=== PATIENT | male | born 1980 | race Hispanic/Latino ===

== ENCOUNTER 2018-01-07 11:42 | Emergency (ER) | payer SELFPAY ==
[2018-01-07] MEDS ORDERED: NA CHLORIDE 0.9% 1,000 ML ONE (12:23)
[2018-01-07 12:39] LABS: Absolute Lymphocytes (CBC) 1.3 K/uL (0.7-4.9); Absolute Monocytes 0.7 K/uL (0.1-1.3); Absolute Neutrophil 5.9 K/uL (1.8-8.0); Eosinophils % 1.4 % (0-4.4); Hematocrit 46.9 % (39.6-49.0); Lymphocytes % 15.9 % (15.3-44.8); MCH 30.2 pg (27.0-35.0); MCV 89.6 fL (80-100); MPV 9.7 fL (7.6-11.3); Monocytes % 8.3 % (3.3-12.3); RBC Red Blood Cell Count 5.23 M/uL (4.33-5.43)
--- NOTE | 2018-01-07 12:40 | RAD REPORT ---
EXAM DESCRIPTION: CT - Head Brain Wo Cont - 01/07/2018 12:23 pm CLINICAL HISTORY: Dizziness COMPARISON: 2007 TECHNIQUE: Computed axial tomography of the head was obtained. IV contrast was not requested. All CT scans are performed using dose optimization technique as appropriate and may include automated exposure control or mA/KV adjustment according to patient size. FINDINGS: An intracranial bleed is not seen . The ventricles are normal in caliber. No extra-axial fluid collection is noted. Fluid within the sinuses/ mastoids is not seen. IMPRESSION: No acute intracranial abnormality is seen. If patient's symptoms persist MRI of the bra in would be recommended.
[2018-01-07 12:51] LABS: CKMB Creatine Kinase MB 1.5 ng/mL (0.3-3.6); Magnesium 2.2 mg/dL (1.8-2.4); Potassium 3.8 mmol/L (3.5-5.1)
[2018-01-07 13:49] LABS: Urine Blood NEGATIVE (NEG); Urine Glucose NEGATIVE (NEG); Urine Protein NEGATIVE (NEG); Urine pH 6.5 (5.0-7.0)
--- NOTE | 2018-01-07 15:28 | ER ---
Nurse's Notes [facility] Name: Suyapa Garcia Age: 37 yrs Sex: Male : 1980 Arrival Date: 01/07/2018 Time: 11:45 Bed 20 Private MD: None, None Diagnosis: Dizziness and giddiness;Near Syncope Presentation: 01/07 11:48 Presenting complaint: Patient states: "I got dizzy today and started sweating, I was aa5 just sitting in a car when it happened". Pt currently denies dizziness. Denies headache. 11:48 Transition of care: patient was not received from another setting of care. Onset of aa5 symptoms was January 07, 2018. Risk Assessment: Do you want to hurt yourself or someone else? Patient reports no desire to harm self or others. Initial Sepsis Screen: Does the patient meet any 2 criteria? No. Patient's initial sepsis screen is negative. Does the patient have a suspected source of infection? No. Patient's initial sepsis screen is negative. Care prior to arrival: None. 11:48 Method Of Arrival: Ambulatory aa5 11:48 Acuity: MAYRA 3 aa5 Historical: - Allergies: 11:53 No Known Allergies; aa5 - Home Meds: 11:53 None [Active]; aa5 - PMHx: 11:53 Hypertension; aa5 - PSHx: 11:53 None; aa5 - Immunization history:: Adult Immunizations up to date. - Social history:: Smoking status: Patient/guardian denies using tobacco. - Ebola Screening: : No symptoms or risks identified at this time. - Family history:: not pertinent. - Hospitalizations: : No recent hospitalization is reported. Screenin:10 Abuse screen: Denies threats or abuse. Denies injuries from another. Nutritional jl7 screening: No deficits noted. Tuberculosis screening: No symptoms or risk factors identified. Fall Risk IV access (20 points). Total Espinoza Fall Scale indicates No Risk (0-24 pts). Assessment: 12:10 General: Appears in no apparent distress. Behavior is calm, cooperative, appropriate jl7 for age. Pain: Denies pain. Neuro: Level of Consciousness is awake, alert, obeys commands, Oriented to person, place, time, situation. Cardiovascular: Heart tones S1 S2 present Patient's skin is warm and dry. Respiratory: Airway is patent Respiratory effort is even, unlabored, Respiratory pattern is regular, symmetrical, Breath sounds are clear bilaterally. GI: No signs and/or symptoms were reported involving the gastrointestinal system. : No signs and/or symptoms were reported regarding the genitourinary system. EENT: No signs and/or symptoms were reported regarding the EENT system. Derm: Skin is pink, warm \\T\\ dry. Musculoskeletal: No signs and/or symptoms reported regarding the musculoskeletal system. 13:00 Reassessment: No changes from previously documented assessment. Patient and/or family jl7 updated on plan of care and expected duration. Pain level reassessed. Patient is alert, oriented x 3, equal unlabored respirations, skin warm/dry/pink. 14:00 Reassessment: Patient and/or family updated on plan of care and expected duration. Pain jl7 level reassessed. Patient is alert, oriented x 3, equal unlabored respirations, skin warm/dry/pink. 14:58 Reassessment: Patient and/or family updated on plan of care and expected duration. Pain jl7 level reassessed. Patient is alert, oriented x 3, equal unlabored respirations, skin warm/dry/pink. 15:22 Reassessment: Patient and/or family updated on plan of care and expected duration. Pain tl3 level reassessed. Patient is alert, oriented x 3, equal unlabored respirations, skin warm/dry/pink. Dr Jolley at bedside discussing POC. Vital Signs: 11:53 BP 140 / 91; Pulse 68; Resp 18 S; Temp 98.7(O); Pulse Ox 96% on R/A; Weight 83.91 kg aa5 (R); Height 5 ft. 4 in. (162.56 cm) (R); Pain 0/10; 12:54 BP 139 / 89; Pulse 73; Resp 17; Pulse Ox 95% ; Pain 0/10; jl7 14:58 BP 139 / 98; Pulse 69; Resp 14; Pulse Ox 98% ; Pain 0/10; jl7 15:22 BP 135 / 87; Pulse 61; Resp 18; Pulse Ox 96% ; tl3 11:53 Body Mass Index 31.75 (83.91 kg, 162.56 cm) aa5 ED Course: 11:45 Patient arrived in ED. as 11:46 None, None is Private Physician. as 11:48 Arm band placed on. aa5 11:52 Triage completed. aa5 11:52 Cornelius Jolley MD is Attending Physician. rn 11:52 Clay Ware, ARTUR is Primary Nurse. jl7 12:[address] via wheelchair. kw1 12:10 Patient has correct armband on for positive identification. Placed in gown. Bed in low jl7 position. Call light in reach. Side rails up X 1. oiler and greaser on. Pulse ox on. NIBP on. 12:10 Initial lab(s) drawn, by dc, sent to lab. Inserted saline lock: 20 gauge in right jl7 antecubital area, using aseptic technique. Blood collected. 12:16 CT completed. Patient tolerated procedure well. Patient moved back from CT. mw3 12:23 CT Head Brain wo Cont In Process Unspecified. EDMS 12:23 EKG done, by tool technician. reviewed by Cornelius Jolley MD. at1 14:59 Report given to ARTUR Grant. jl7 15:34 No provider procedures requiring assistance completed. IV discontinued, intact, tl3 bleeding controlled, No redness/swelling at site. Pressure dressing applied. Administered Medications: 12:52 Drug: NS 0.9% 1000 ml Route: IV; Rate: 1000 ml; Site: right antecubital; jl7 14:00 Follow up: IV Status: Completed infusion; IV Intake: 1000ml tl3 Intake: 14:00 IV: 1000ml; Total: 1000ml. tl3 Outcome: 15:27 Discharge ordered by . rn 15:34 Discharged to home ambulatory. tl3 15:34 Condition: stable 15:34 Discharge instructions given to patient, Instructed on discharge instructions, follow up and referral plans. Demonstrated understanding of instructions, follow-up care. 15:35 Patient left the ED. tl3 Signatures: Dispatcher [employer] Sherine Timmons Roman, MD MD rn Calderon, Audri, RN RN aa5 Uyen blas, food beverage attendant EKG Tat1 Clay Ware, ARTUR RN jl7 Jessenia Cabrera kw1 Juanita Barrera RN RN tl3 Suri Mccauley mw3
--- NOTE | 2018-01-07 15:28 | EDPHYS ---
Physician Documentation [facility] Name: Suyapa Garcia Age: 37 yrs Sex: Male : 1980 Arrival Date: 01/07/2018 Time: 11:45 Bed 20 Private MD: None, None ED Physician Cornelius Jolley HPI: 01/07 12:23 This 37 yrs old Male presents to ER via Ambulatory with complaints of rn Dizziness. 12:23 The patient presents with dizziness, sense of spinning. Onset: The symptoms/episode rn began/occurred just prior to arrival. Modifying factors: The symptoms are alleviated by nothing, the symptoms are aggravated by movement of head. Severity of symptoms: At their worst the symptoms were moderate in the emergency department the symptoms have resolved. The patient has experienced similar episodes in the past. Reports dizziness, felt off balance, lasted less than an hour, now resolved, feels at baseline, no fever/head injury/chest pain/sob/abd pain/vomiting/diarrhea. Has happened before, but not this bad. . Historical: - Allergies: 11:53 No Known Allergies; aa5 - Home Meds: 11:53 None [Active]; aa5 - PMHx: 11:53 Hypertension; aa5 - PSHx: 11:53 None; aa5 - Immunization history:: Adult Immunizations up to date. - Social history:: Smoking status: Patient/guardian denies using tobacco. - Ebola Screening: : No symptoms or risks identified at this time. - Family history:: not pertinent. - Hospitalizations: : No recent hospitalization is reported. ROS: 12:23 Constitutional: Negative for fever, chills, and weight loss, Eyes: Negative for injury, rn pain, redness, and discharge, Neck: Negative for injury, pain, and swelling, Cardiovascular: Negative for chest pain, and edema, Respiratory: Negative for shortness of breath, cough, wheezing, and pleuritic chest pain, Abdomen/GI: Negative for abdominal pain, diarrhea, and constipation, MS/Extremity: Negative for injury and deformity, Skin: Negative for injury, rash, and discoloration, Neuro: Negative for headache, weakness, numbness, tingling, and seizure. Exam: 12:23 ECG was reviewed by the Attending Physician. rn 12:23 Constitutional: This is a well developed, well nourished patient who is awake, alert, rn and in no acute distress. Head/Face: Normocephalic, atraumatic. Eyes: Pupils equal round and reactive to light, extra-ocular motions intact. Lids and lashes normal. Conjunctiva and sclera are non-icteric and not injected. Cornea within normal limits. Periorbital areas with no swelling, redness, or edema. Cardiovascular: Regular rate and rhythm with a normal S1 and S2. No gallops, murmurs, or rubs. Normal PMI, no JVD. No pulse deficits. Respiratory: Lungs have equal breath sounds bilaterally, clear to auscultation and percussion. No rales, rhonchi or wheezes noted. No increased work of breathing, no retractions or nasal flaring. Abdomen/GI: Soft, non-tender, with normal bowel sounds. No distension or tympany. No guarding or rebound. No evidence of tenderness throughout. Skin: Warm, dry with normal turgor. Normal color with no rashes, no lesions, and no evidence of cellulitis. MS/ Extremity: Pulses equal, no cyanosis. Neurovascular intact. Full, normal range of motion. Equal circumference. Neuro: Awake and alert, GCS 15, oriented to person, place, time, and situation. Cranial nerves II-XII grossly intact. Motor strength 5/5 in all extremities. Sensory grossly intact. Cerebellar exam normal. Normal gait. Vital Signs: 11:53 BP 140 / 91; Pulse 68; Resp 18 S; Temp 98.7(O); Pulse Ox 96% on R/A; Weight 83.91 kg aa5 (R); Height 5 ft. 4 in. (162.56 cm) (R); Pain 0/10; 12:54 BP 139 / 89; Pulse 73; Resp 17; Pulse Ox 95% ; Pain 0/10; jl7 14:58 BP 139 / 98; Pulse 69; Resp 14; Pulse Ox 98% ; Pain 0/10; jl7 15:22 BP 135 / 87; Pulse 61; Resp 18; Pulse Ox 96% ; tl3 11:53 Body Mass Index 31.75 (83.91 kg, 162.56 cm) aa5 MDM: 11:52 Patient medically screened. rn 15:26 Differential diagnosis: cardiac arrhythmia, generalized weakness, hyperventilation, rn hypovolemia, idiopathic dizziness, near-syncope, vertigo. Data reviewed: vital signs, nurses notes, lab test result(s), EKG, radiologic studies, CT scan, and as a result, I will discharge patient. Counseling: I had a detailed discussion with the patient and/or guardian regarding: the historical points, exam findings, and any diagnostic results supporting the discharge/admit diagnosis, lab results, radiology results, the need for outpatient follow up, to return to the emergency department if symptoms worsen or persist or if there are any questions or concerns that arise at home. Response to treatment: the patient's symptoms have resolved after treatment, the patient's condition has returned to base line, the patient is now symptom free, patient is well hydrated. and as a result, I will discharge patient. Special discussion: I discussed with the patient/guardian in detail that at this point there is no indication for admission to the hospital. It is understood, however, that if the symptoms persist or worsen the patient needs to return immediately for re-evaluation. 15:26 Special discussion: Based on the history and exam findings, there is no indication for rn further emergent testing or inpatient evaluation. I discussed with the patient/guardian the need to see the pick up driver for further evaluation of the symptoms. 01/07 12:08 Order name: Basic Metabolic Panel; Complete Time: 13:00 rn 01/07 12:08 Order name: CBC with Diff; Complete Time: 12: rn 01/07 12:08 Order name: Ckmb; Complete Time: 13:01/07 12:08 Order name: CPK; Complete Time: 13:01/07 12:08 Order name: Magnesium; Complete Time: 13:01/07 12:08 Order name: Troponin (emerg Dept Use Only); Complete Time: 13:00 01/07 12:08 Order name: CT Head Brain wo Cont; Complete Time: 12:46 rn 01/07 12:08 Order name: EKG; Complete Time: 12: rn 01/07 12:08 Order name: Cardiac monitoring; Complete Time: 12:59 01/07 12:08 Order name: EKG - Nurse/Tech; Complete Time: 12:59 01/07 12:08 Order name: IV Saline Lock; Complete Time: 12:58 01/07 12:08 Order name: Labs collected and sent; Complete Time: 12:58 rn 01/07 13:41 Order name: Urine Dipstick--Ancillary (enter results); Complete Time: 14:19 bd 01/07 12:08 Order name: NPO; Complete Time: 12:58 rn 01/07 12:08 Order name: O2 Per Protocol; Complete Time: 12:58 rn 01/07 12:08 Order name: O2 Sat Monitoring; Complete Time: 12:58 rn EC:23 Rate is 64 beats/min. Rhythm is regular. QRS [place] is Normal. FL interval is normal. QRS rn interval is normal. QT interval is normal. No Q waves. T waves are Normal. No ST changes noted. Clinical impression: Normal ECG. Interpreted by me. Administered Medications: 12:52 Drug: NS 0.9% 1000 ml Route: IV; Rate: 1000 ml; Site: right antecubital; jl7 14:00 Follow up: IV Status: Completed infusion; IV Intake: 1000ml tl3 Disposition: 01/07/18 15:27 Discharged to Home. Impression: Dizziness and giddiness, Near Syncope. - Condition is Stable. - Discharge Instructions: Dizziness, Near-Syncope. - Medication Reconciliation Form, Thank You Letter, Antibiotic Education, Prescription Opioid Use form. - Follow up: Private Physician; When: As needed; Reason: Recheck today's complaints, Re-evaluation by your physician. - Problem is new. - Symptoms have improved. Signatures: Dispatcher [employer] EDMS Cornelius Jolley MD MD rn Calderon, Audri, RN RN aa5 Clay Ware RN RN jl7 Juanita Barrera RN RN tl3 Corrections: (The following items were deleted from the chart) 15:35 15:27 01/07/2018 15:27 Discharged to Home. Impression: Dizziness and giddiness; Near tl3 Syncope. Condition is Stable. Forms are Medication Reconciliation Form, Thank You Letter, Antibiotic Education, Prescription Opioid Use. Follow up: Private Physician; When: As needed; Reason: Recheck today's complaints, Re-evaluation by your physician. Problem is new. Symptoms have improved. rn
--- NOTE | 2018-01-08 10:43 | EKG ---
Test Date: 2018-01-07 Test Time: 12:16:02 Farm Operator: GIOVANA MEASUREMENT RESULTS: Intervals: Rate: 64 [place]: 160 QRSD: 94 QT: 398 QTc: 410 [place]: P: 38 [place]: 160 QRS: 50 T: 42 INTERPRETIVE STATEMENTS: Normal sinus rhythm Normal ECG No previous ECG available for comparison Electronically Signed On 01-08-18 10:42:35 CDT by Jovan Ventura
== END 2018-01-07 15:35 | disposition home or self-care (01) ==
LOC: ER 11:42
DX: R55 Syncope and collapse (principal); I10 Essential (primary) hypertension
CPT/HCPCS: 36415; 70450; 80048; 81003; 82550; 82553; 83735; 84484; 85025; 93005; 96360; 99285; J7030

== ENCOUNTER 2018-07-27 14:14 | Inpatient (IN) | payer SELFPAY ==
--- NOTE | 2018-07-27 15:01 | RAD REPORT ---
EXAM DESCRIPTION: CT - Head Brain Wo Cont - 07/27/2018 2:51 pm CLINICAL HISTORY: HEMIPLEGIA Headache, drowsiness COMPARISON: Head Brain Wo Cont dated 01/07/2018; HEAD BRAIN W O CONTRAST dated 04/10/2008 TECHNIQUE: All CT scans are performed using dose optimization technique as appropriate and may inclu de automated exposure control or mA/KV adjustment according to patient size. FINDINGS: No intracranial hemorrhage, hydrocephalus or extra-axial fluid collection.No areas of brai n edema or evidence of midline shift. The paranasal sinuses and mastoids are clear. The calvarium is intact. IMPRESSION: No acute intracranial abnormality.
[2018-07-27 15:21] LABS: Absolute Lymphocytes (CBC) 1.3 K/uL (0.7-4.9); Absolute Monocytes 0.9 K/uL (0.1-1.3); Absolute Neutrophil 6.3 K/uL (1.8-8.0); Basophils % 0.5 % (0-1.3); Eosinophils % 1.9 % (0-4.4); Hematocrit 43.6 % (39.6-49.0); Lymphocytes % 14.9 % (15.3-44.8); MPV 9.2 fL (7.6-11.3); RBC Red Blood Cell Count 4.81 M/uL (4.33-5.43)
--- NOTE | 2018-07-27 15:24 | RAD REPORT ---
EXAM DESCRIPTION: RAD - Chest Single View - 07/27/2018 3:07 pm CLINICAL HISTORY: cva Chest pain. COMPARISON: Chest Single View dated 09/06/2017; CHEST SINGLE VIEW dated 04/10/2008 FINDINGS: The lungs are clear. The heart is normal in size. No displaced fractures. IMPRESSION: No acute or concerning finding suspected.
[2018-07-27 15:28] LABS: Protime INR 1.09
[2018-07-27 15:44] LABS: ALT/SGPT 56 U/L (12-78); AST/SGOT 16 U/L (15-37); Albumin 4.1 g/dL (3.4-5.0); Alkaline Phosphatase 82 U/L (45-117); BUN Blood Urea Nitrogen 11 mg/dL (7-18); Bicarbonate 25 mmol/L (21-32); Bilirubin Direct 0.1 mg/dL (0-0.2); Bilirubin Total 0.5 mg/dL (0.2-1.0); Glucose Level 104 mg/dL (74-106); Magnesium 2.6 mg/dL (1.8-2.4); Potassium 3.9 mmol/L (3.5-5.1); Protein, Total 7.3 g/dL (6.4-8.2); Sodium Level 140 mmol/L (136-145); Troponin (Emerg Dept Use Only) < 0.02 ng/mL (0.0-0.045)
--- NOTE | 2018-07-27 16:46 | ER ---
Nurse's Notes [facility] Name: Suyapa Garcia Age: 37 yrs Sex: Male : 1980 Arrival Date: 07/27/2018 Time: 14:15 Bed 5 Private MD: None, None Diagnosis: Other symptoms and signs involving the nervous system-unilateral weakness Presentation: 07/27 14:26 Presenting complaint: states: pt woke up this morning around 5 or 6 and had left iw sided weakness, felt like he couldn't move, he looked dazed and couldn't talk, went to bed at midnight last night and was completely normal, right now he still feels weak on left side, c/o intermittent headache that makes symptoms worse. Transition of care: patient was not received from another setting of care. No acute neurological deficit is noted. Pre-hospital glucose is not applicable to this patient. Onset of symptoms was July 26, 2018. Risk Assessment: Do you want to hurt yourself or someone else? Patient reports no desire to harm self or others. Initial Sepsis Screen: Does the patient meet any 2 criteria? No. Patient's initial sepsis screen is negative. Does the patient have a suspected source of infection? No. Patient's initial sepsis screen is negative. Care prior to arrival: None. 14:26 Method Of Arrival: Wheelchair iw 14:26 Acuity: MAYRA 2 iw Triage Assessment: 19:06 The onset of the patients symptoms was more than six hours ago. jd3 19:07 Neuro: Reports dizziness, prior to arrival. jd3 19:07 The onset of the patients symptoms was July 27, 2018 at 00:00. jd3 Stroke Activation: Symptom onset > 6 hours Physician: Stroke Attending; Name: ; Notified At: ; Arrived At: Physician: Chief Stroke Resident; Name: ; Notified At: ; Arrived At: Physician: Stroke Resident; Name: ; Notified At: ; Arrived At: Physician: ED Attending; Name: ; Notified At: ; Arrived At: Physician: ED Resident; Name: ; Notified At: ; Arrived At: Historical: - Allergies: 14:32 No Known Allergies; iw - Home Meds: 14:32 None [Active]; iw - PMHx: 14:32 Hypertension; iw - PSHx: 14:32 None; iw - Immunization history:: Adult Immunizations unknown. - Ebola Screening: : Patient negative for fever greater than or equal to 101.5 degrees Fahrenheit, and additional compatible Ebola Virus Disease symptoms Patient denies exposure to infectious person Patient denies travel to an Ebola-affected area in the 21 days before illness onset No symptoms or risks identified at this time. - Social history:: Smoking status: unknown. Screenin:21 Abuse screen: Denies threats or abuse. Denies injuries from another. Nutritional bp screening: No deficits noted. Tuberculosis screening: No symptoms or risk factors identified. Fall Risk None identified. Assessment: 15:00 Patient has been NPO before screening. The patient is alert, and able to follow bp commands. The patient does not exhibit slurred or garbled speech. The patient is not exhibiting difficulty speaking. The patient does not exhibit difficulty understanding words. The patient is able to swallow own secretions with no drooling or need for suction. Patient tolerated one teaspoon of water. No drooling, immediate coughing, gurgling, or clearing of the throat was noted. The patient tolerated 90mL of water. No drooling, immediate coughing, gurgling, or clearing of the throat was noted. The patient passed the bedside swallow screening. Oral medications may be given as ordered. Contact Physician for further diet orders. Provider notified of bedside swallow screening results: Orestes Hu MD. T-PA (Activase) Screening: Contraindications: Patient reports onset of signs and symptoms of stroke greater than 6 hours ago: Yes. Rapidly improving condition or minor deficit: Yes. General: Appears in no apparent distress. comfortable, Behavior is calm, cooperative, appropriate for age. Pain: Denies pain. Neuro: Level of Consciousness is awake, alert, obeys commands, Oriented to person, place, time, situation, Appropriate for age. Cardiovascular: Rhythm is regular. Respiratory: Airway is patent Respiratory effort is even, unlabored, Respiratory pattern is regular, symmetrical. GI: No signs and/or symptoms were reported involving the gastrointestinal system. : No signs and/or symptoms were reported regarding the genitourinary system. EENT: No deficits noted. Derm: No deficits noted. Musculoskeletal: Circulation, motion, and sensation intact. Range of motion: intact in all extremities. 19:16 Reassessment: Patient appears in no apparent distress at this time. No changes from jd3 previously documented assessment. Patient and/or family updated on plan of care and expected duration. Pain level reassessed. Patient is alert, oriented x 3, equal unlabored respirations, skin warm/dry/pink. Vital Signs: 14:32 BP 162 / 97; Pulse 68; Resp 16 S; Temp 98; Pulse Ox 98% on R/A; Weight 88.45 kg; Height bp 5 ft. 4 in. (162.56 cm); 16:30 BP 144 / 89; Pulse 70; Resp 16; Pulse Ox 98% ; bp 19:15 BP 130 / 76; Pulse 82; Resp 17 S; Pulse Ox 97% on R/A; jd3 14:32 Body Mass Index 33.47 (88.45 kg, 162.56 cm) bp NIH Stroke Scale Scores: 14:57 NIHSS Score: 0 jr8 15:00 NIHSS Score: 0 bp ED Course: 14:15 Patient arrived in ED. sb2 14:15 None, None is Private Physician. sb2 14:19 [facility] jr8 14:19 Orestes Hu MD is Attending Physician. jr8 14:31 Triage completed. iw 14:33 Arm band placed on. iw 14:45 Jaime Siddiqui, ARTUR is Primary Nurse. bp 14:51 CT Head Brain wo Cont In Process Unspecified. EDMS 15:00 Inserted saline lock: 18 gauge in right antecubital area, using aseptic technique. bp Blood collected. 15:07 Stroke CXR 1 View In Process Unspecified. EDMS 15:21 Patient has correct armband on for positive identification. Bed in low position. Call bp light in reach. Side rails up X2. Adult w/ patient. 15:45 EKG done, by ED staff, reviewed by Duane ALEXANDER. jb1 16:41 Candis Bowles MD is Hospitalizing Provider. jr8 19:34 No provider procedures requiring assistance completed. Patient admitted, IV remains in jd3 place. Administered Medications: 15:49 Not Given (Duplicate Order): Aspirin 325 mg PO once bp Point of Care Testing: Blood Glucose: 15:14 Blood Glucose: 111 mg/dL; bp Ranges: Outcome: 16:46 Decision to Hospitalize by Provider. jr8 19:34 Admitted to Med/surg accompanied by tech, via wheelchair, room 209, with chart, Report jd3 called to Yareli SIDDIQUI 19:34 Condition: stable 20:19 Patient left the ED. carla NIH Stroke Scale - NIH Stroke Score Date: 07/27/2018 Time: 14:57 Total Score = 0 1a. Level of Consciousness (LOC) - 0(Alert) 1b. Level of Consciousness (LOC) (Year \T\ Age) - 0(Both) 1c. LOC Commands (Open \T\ Closes Eyes/Easter Bunny) - 0(Both) 2. Best Gaze (Lateral Gaze Paresis) - 0(Normal) 3. Visual Field Loss - 0(No visual loss) 4. Facial Palsy - 0(Normal) 5a. Left Arm: Motor (10-second hold) - 0(No drift) 5b. Right Arm: Motor (10-second hold) - 0(No drift) 6a. Left Leg: Motor (5-second hold - always test supine) - 0(No drift) 6b. Right Leg: Motor (5-second hold - always test supine) - 0(No drift) 7. Limb Ataxia (finger/nose \T\ heel/lopez - test with eyes open) - 0(Absent) 8. Sensory Loss (pinprick arms/legs/face) - 0(Normal) 9. Best Language: Aphasia (description/naming/reading) - 0(No aphasia) 10. Dysarthria (speech clarity - read or repeat words) - 0(Normal) 11. Extinction and Inattention (visual/tactile/auditory/spatial/personal) - 0(No abnormality) Initials: jr8 NIH Stroke Scale - NIH Stroke Score Date: 07/27/2018 Time: 15:00 Total Score = 0 1a. Level of Consciousness (LOC) - 0(Alert) 1b. Level of Consciousness (LOC) (Year \T\ Age) - 0(Both) 1c. LOC Commands (Open \T\ Closes Eyes/Easter Bunny) - 0(Both) 2. Best Gaze (Lateral Gaze Paresis) - 0(Normal) 3. Visual Field Loss - 0(No visual loss) 4. Facial Palsy - 0(Normal) 5a. Left Arm: Motor (10-second hold) - 0(No drift) 5b. Right Arm: Motor (10-second hold) - 0(No drift) 6a. Left Leg: Motor (5-second hold - always test supine) - 0(No drift) 6b. Right Leg: Motor (5-second hold - always test supine) - 0(No drift) 7. Limb Ataxia (finger/nose \T\ heel/lopez - test with eyes open) - 0(Absent) 8. Sensory Loss (pinprick arms/legs/face) - 0(Normal) 9. Best Language: Aphasia (description/naming/reading) - 0(No aphasia) 10. Dysarthria (speech clarity - read or repeat words) - 0(Normal) 11. Extinction and Inattention (visual/tactile/auditory/spatial/personal) - 0(No abnormality) Initials: bp Signatures: Dispatcher [employer] EDMS Pb N[place] jb1 Emilee Still RN RN iw Duane Tripathi PA PA jr8 Butch Monzon RN RN jJaime Tapia RN RN bp [place] sb2 Corrections: (The following items were deleted from the chart) 15:18 14:32 BP 162 / 97; Pulse 68bpm; Resp 16bpm; Spontaneous; Pulse Ox 98% RA; iw bp
--- NOTE | 2018-07-27 16:47 | EDPHYS ---
Physician Documentation [facility] Name: Suyapa Garcia Age: 37 yrs Sex: Male : 1980 Arrival Date: 07/27/2018 Time: 14:15 Bed 5 Private MD: None, None ED Physician Orestes Hu HPI: 07/27 14:57 This 37 yrs old Male presents to ER via Wheelchair with complaints of S/S of jr8 Possible Stroke. 14:57 The patient's problem is reported as weakness, in the left upper extremity, in the left jr8 lower extremity. Onset: The symptoms/episode began/occurred at an unknown time. Duration: The episode is continuous. Context: occurred at home, occurred while the patient was asleep. The symptoms are alleviated by nothing. The symptoms are aggravated by nothing. Associated signs and symptoms: Pertinent positives: headache. Severity of symptoms: At their worst the symptoms were moderate in the emergency department the symptoms have improved. Patient's baseline: Neuro: alert and fully oriented, Motor: no deficits, Ambulation: walks without assistance, Speech: normal. The patient has not experienced similar symptoms in the past. The patient has not recently seen a physician. Patient with history of uncontrolled HTN. Went to bed last night at midnight. Woke up between 6 and 7 am this morning to use the restroom. Noted that he was having a hard time getting out of bed. Upon standing fell on left side due to weakness. Had been having headaches on/off that intensify weakness feeling. Historical: - Allergies: 14:32 No Known Allergies; iw - Home Meds: 14:32 None [Active]; iw - PMHx: 14:32 Hypertension; iw - PSHx: 14:32 None; iw - Immunization history:: Adult Immunizations unknown. - Ebola Screening: : Patient negative for fever greater than or equal to 101.5 degrees Fahrenheit, and additional compatible Ebola Virus Disease symptoms Patient denies exposure to infectious person Patient denies travel to an Ebola-affected area in the 21 days before illness onset No symptoms or risks identified at this time. - Social history:: Smoking status: unknown. ROS: 14:57 Eyes: Negative for injury, pain, redness, and discharge, ENT: Negative for injury, jr8 pain, and discharge, Neck: Negative for injury, pain, and swelling, Cardiovascular: Negative for chest pain, palpitations, and edema, Respiratory: Negative for shortness of breath, cough, wheezing, and pleuritic chest pain, Abdomen/GI: Negative for abdominal pain, nausea, vomiting, diarrhea, and constipation, Back: Negative for injury and pain, MS/Extremity: Negative for injury and deformity, Skin: Negative for injury, rash, and discoloration. 14:57 Neuro: Positive for headache, weakness. Exam: 14:57 Eyes: Pupils equal round and reactive to light, extra-ocular motions intact. Lids and jr8 lashes normal. Conjunctiva and sclera are non-icteric and not injected. Cornea within normal limits. Periorbital areas with no swelling, redness, or edema. ENT: Nares patent. No nasal discharge, no septal abnormalities noted. Tympanic membranes are normal and external auditory canals are clear. Oropharynx with no redness, swelling, or masses, exudates, or evidence of obstruction, uvula midline. Mucous membranes moist. Neck: Trachea midline, no thyromegaly or masses palpated, and no cervical lymphadenopathy. Supple, full range of motion without nuchal rigidity, or vertebral point tenderness. No Meningismus. Cardiovascular: Regular rate and rhythm with a normal S1 and S2. No gallops, murmurs, or rubs. Normal PMI, no JVD. No pulse deficits. Respiratory: Lungs have equal breath sounds bilaterally, clear to auscultation and percussion. No rales, rhonchi or wheezes noted. No increased work of breathing, no retractions or nasal flaring. Abdomen/GI: Soft, non-tender, with normal bowel sounds. No distension or tympany. No guarding or rebound. No evidence of tenderness throughout. Back: No spinal tenderness. No costovertebral tenderness. Full range of motion. Skin: Warm, dry with normal turgor. Normal color with no rashes, no lesions, and no evidence of cellulitis. MS/ Extremity: Pulses equal, no cyanosis. Neurovascular intact. Full, normal range of motion. 14:57 Neuro: Orientation: to person, place, time \T\ situation. Mentation: is normal, Memory: is normal, Cranial nerves: CN I not tested, CN II- XII are normal as tested, visual fong are intact. extraocular movements are intact, Facial palsy and sensory deficits are absent. Nystagmus is absent. Speech is clear and appropriate. Tongue strength is normal, Cerebellar function: normal finger to nose testing, heel to lopez testing is normal, Motor: moves all fours, strength is 5/5 in the right hand, right foot, right arm and right leg, strength is 4/5 in the left hand, left foot, left arm and left leg, Sensation: no obvious gross deficits, Gait: not tested. seizure activity, is not displayed by the patient, Abnormal movements: there are no abnormal movements. 15:05 Radiologist reports: No acute finding jr8 Vital Signs: 14:32 BP 162 / 97; Pulse 68; Resp 16 S; Temp 98; Pulse Ox 98% on R/A; Weight 88.45 kg; Height bp 5 ft. 4 in. (162.56 cm); 16:30 BP 144 / 89; Pulse 70; Resp 16; Pulse Ox 98% ; bp 19:15 BP 130 / 76; Pulse 82; Resp 17 S; Pulse Ox 97% on R/A; jd3 14:32 Body Mass Index 33.47 (88.45 kg, 162.56 cm) bp NIH Stroke Scale Scores: 14:57 NIHSS Score: 0 jr8 15:00 NIHSS Score: 0 bp MDM: 14:19 Patient medically screened. jr8 16:05 ED course: Talked to family about CT results. Still cannot clear him of not having CVA jr8 or TIA. Would need MRI and neurological evaluation which we do not currently have at this moment. Told him it would be best to be transferred to a primary facility for further neurologic work up. Patient does not want to be transferred due to family constraints. I am attempting to get a hold of Dr. Araujo or Dr. Nelson to see if they will consult on case . 16:40 Data reviewed: vital signs, nurses notes, lab test result(s), EKG, radiologic studies, jr8 CT scan, plain films, and as a result, I will admit patient. Data interpreted: Pulse oximetry: on room air is 98 %. Interpretation: normal. Counseling: I had a detailed discussion with the patient and/or guardian regarding: the historical points, exam findings, and any diagnostic results supporting the discharge/admit diagnosis, lab results, radiology results, the need for further work-up and treatment in the hospital. ED course: Dr. Araujo contacted and will be able to see patient tomorrow and have MRI completed . 07/27 14:31 Order name: Hepatic Function; Complete Time: 15:50 07/27 14:31 Order name: Magnesium; Complete Time: 15:50 07/27 14:31 Order name: Troponin (emerg Dept Use Only); Complete Time: 15:50 07/27 14:31 Order name: Basic Metabolic Panel; Complete Time: 15:50 07/27 14:31 Order name: CBC with Diff; Complete Time: 15:24 07/27 14:31 Order name: Protime (+inr); Complete Time: 15:44 07/27 14:31 Order name: Ptt, Activated; Complete Time: 15:44 07/27 17:30 Order name: Urinalysis EDMS 07/27 17:30 Order name: CBC with Automated Diff EDMS 07/27 17:30 Order name: CBC with Automated Diff EDMS 07/27 17:30 Order name: Comprehensive Metabolic Panel EDMS 07/27 17:30 Order name: Comprehensive Metabolic Panel EDMS 07/27 17:30 Order name: Troponin I EDMS 07/27 17:30 Order name: Troponin I EDMS 07/27 14:31 Order name: Stroke CXR 1 View; Complete Time: 15:24 07/27 14:31 Order name: EKG; Complete Time: 14:32 07/27 14:31 Order name: Accucheck; Complete Time: 15:13 07/27 14:31 Order name: Cardiac monitoring; Complete Time: 15:13 07/27 14:31 Order name: EKG - Nurse/Tech; Complete Time: 15:37 07/27 14:31 Order name: IV Saline Lock; Complete Time: 15:13 07/27 14:31 Order name: Labs collected and sent; Complete Time: 15:13 07/27 14:31 Order name: NPO; Complete Time: 15:13 07/27 14:31 Order name: O2 Per Protocol; Complete Time: 15:14 07/27 14:31 Order name: O2 Sat Monitoring; Complete Time: 15:14 07/27 14:31 Order name: Stroke Swallow Screen; Complete Time: 15:14 07/27 14:31 Order name: CT Head Brain wo Cont; Complete Time: 15:05 [facility] 07/27 17:30 Order name: CONS Physician Consult [facility] 07/27 17:30 Order name: Heart Healthy [facility] 07/27 17:30 Order name: Troponin I [facility] Administered Medications: 15:49 Not Given (Duplicate Order): Aspirin 325 mg PO once bp Point of Care Testing: Blood Glucose: 15:14 Blood Glucose: 111 mg/dL; bp Ranges: Critical Glucose Levels:Adult <50 mg/dl or >400 mg/dl <40 mg/dl or >180 mg/dl Disposition: 07/28 07:23 Co-signature as Attending Physician, Orestes Hu MD I agree with the assessment and brad plan of care. Disposition: 07/27/18 16:46 Hospitalization ordered by Candis Bowles for Observation. Preliminary diagnosis is Other symptoms and signs involving the nervous system - unilateral weakness . - Bed requested for Telemetry/MedSurg (observation). - Status is Observation. jd3 - Condition is Stable. - Problem is new. - Symptoms are unchanged. UTI on Admission? No NIH Stroke Scale - NIH Stroke Score Date: 07/27/2018 Time: 14:57 Total Score = 0 1a. Level of Consciousness (LOC) - 0(Alert) 1b. Level of Consciousness (LOC) (Year \T\ Age) - 0(Both) 1c. LOC Commands (Open \T\ Closes Eyes/Plumber'S Helper) - 0(Both) 2. Best Gaze (Lateral Gaze Paresis) - 0(Normal) 3. Visual Field Loss - 0(No visual loss) 4. Facial Palsy - 0(Normal) 5a. Left Arm: Motor (10-second hold) - 0(No drift) 5b. Right Arm: Motor (10-second hold) - 0(No drift) 6a. Left Leg: Motor (5-second hold - always test supine) - 0(No drift) 6b. Right Leg: Motor (5-second hold - always test supine) - 0(No drift) 7. Limb Ataxia (finger/nose \T\ heel/lopez - test with eyes open) - 0(Absent) 8. Sensory Loss (pinprick arms/legs/face) - 0(Normal) 9. Best Language: Aphasia (description/naming/reading) - 0(No aphasia) 10. Dysarthria (speech clarity - read or repeat words) - 0(Normal) 11. Extinction and Inattention (visual/tactile/auditory/spatial/personal) - 0(No abnormality) Initials: jr8 NIH Stroke Scale - NIH Stroke Score Date: 07/27/2018 Time: 15:00 Total Score = 0 1a. Level of Consciousness (LOC) - 0(Alert) 1b. Level of Consciousness (LOC) (Year \T\ Age) - 0(Both) 1c. LOC Commands (Open \T\ Closes Eyes/Plumber'S Helper) - 0(Both) 2. Best Gaze (Lateral Gaze Paresis) - 0(Normal) 3. Visual Field Loss - 0(No visual loss) 4. Facial Palsy - 0(Normal) 5a. Left Arm: Motor (10-second hold) - 0(No drift) 5b. Right Arm: Motor (10-second hold) - 0(No drift) 6a. Left Leg: Motor (5-second hold - always test supine) - 0(No drift) 6b. Right Leg: Motor (5-second hold - always test supine) - 0(No drift) 7. Limb Ataxia (finger/nose \T\ heel/lopez - test with eyes open) - 0(Absent) 8. Sensory Loss (pinprick arms/legs/face) - 0(Normal) 9. Best Language: Aphasia (description/naming/reading) - 0(No aphasia) 10. Dysarthria (speech clarity - read or repeat words) - 0(Normal) 11. Extinction and Inattention (visual/tactile/auditory/spatial/personal) - 0(No abnormality) Initials: bp Signatures: Dispatcher [employer] Samantha Le RN RN dw Anderson, Corey, MD MD cha Williams, Irene, RN RN iw Roszak, Josh, PA PA jr8 Butch Monzon RN RN jd3 Peltier, Brian RN bp Corrections: (The following items were deleted from the chart) 07/27 17:49 16:46 Hospitalization Ordered by Candis Bowles MD for Observation. Preliminary dw diagnosis is Other symptoms and signs involving the nervous system - unilateral weakness . Bed requested for Telemetry/MedSurg (observation). Status is Observation. Condition is Stable. Problem is new. Symptoms are unchanged. UTI on Admission? No. jr8 20:19 17:49 07/27/2018 16:46 Hospitalization Ordered by Candis Bowles MD for jd3 Observation. Preliminary diagnosis is Other symptoms and signs involving the nervous system - unilateral weakness . Bed requested for Telemetry/MedSurg (observation). Status is Observation. Condition is Stable. Problem is new. Symptoms are unchanged. UTI on Admission? No. dw
[2018-07-27] MEDS ORDERED: ENOXAPARIN 40 MG/0.4 ML SQ SCH (18:00)
[2018-07-27] MEDS: ACETAMINOPHEN 500 MG TAB PO PRN ×2 (19:14→22:44)
[2018-07-27] MEDS ORDERED: ACETAMINOPHEN 500 MG TAB ONE (19:21)
[2018-07-27 21:00] LABS: Urine Appearance CLOUDY; Urine Bilirubin NEGATIVE (NEG); Urine Blood NEGATIVE (NEG); Urine Color YELLOW; Urine Glucose 1+ (NEG); Urine Protein NEGATIVE (NEG); Urine Urobilinogen 0.2 mg/dL (0.2-1.0)
[2018-07-27 21:19] LABS: Urine Microscopic Reflex ORDER UMIC
[2018-07-27 22:11] LABS: Urine Amorphous Sediment 2+ /HPF (NONE SEEN); Urine Bacteria <20 /HPF (NONE SEEN); Urine Culture Reflex Order NOT NEEDED
[2018-07-27 22:12] LABS: Urine RBC NONE SEEN /HPF (NONE SEEN)
[2018-07-28 05:58] LABS: Absolute Lymphocytes (CBC) 1.8 K/uL (0.7-4.9); Absolute Monocytes 0.8 K/uL (0.1-1.3); Absolute Neutrophil 5.6 K/uL (1.8-8.0); Basophils % 0.8 % (0-1.3); Eosinophils % 4.9 % (0-4.4); Hematocrit 45.2 % (39.6-49.0); Lymphocytes % 20.6 % (15.3-44.8); MPV 9.1 fL (7.6-11.3); Monocytes % 9.8 % (3.3-12.3); RBC Red Blood Cell Count 4.96 M/uL (4.33-5.43)
[2018-07-28 06:18] LABS: Albumin 3.7 g/dL (3.4-5.0); Bilirubin Total 0.3 mg/dL (0.2-1.0); Potassium 4.3 mmol/L (3.5-5.1); Protein, Total 6.8 g/dL (6.4-8.2)
--- NOTE | 2018-07-28 06:26 | EKG ---
Test Date: 2018-07-27 Test Time: 15:28:41 Truckload Checker: LION MEASUREMENT RESULTS: Intervals: Rate: 64 CT: 162 QRSD: 84 QT: 404 QTc: 416 [place]: P: 29 CT: 162 QRS: 21 T: 26 INTERPRETIVE STATEMENTS: Normal sinus rhythm Minimal voltage criteria for LVH, may be normal variant Borderline ECG Compared to ECG 01/07/2018 12:16:02 Left ventricular hypertrophy now present Electronically Signed On 07-28-18 06:19:04 [employer] PROFESS[employer] by Jovan Ventura
[2018-07-28] MEDS ORDERED: INFLUENZA VACCINE (for 3y+) 0.5 ML DOSE IMVAC ONE (09:00)
--- NOTE | 2018-07-28 09:03 | P.HP ---
Certification for Inpatient Patient admitted to: Observation With expected LOS: <2 Midnights Practitioner: I am a practitioner with admitting privileges, knowledge of patient current condition, hospital course, and medical plan of care. Services: Services provided to patient in accordance with Admission requirements found in Title 42 Section 412.3 of the Code of Federal Regulations Patient History Date of Service: 07/27/18 Reason for admission: Left-sided weakness History of Present Illness: Patient is a 37-year-old gentleman who came into the hospital with left-sided weakness. He states his face, his arms, and his legs were weak. This happened to him a few months ago while at work. He states he was evaluated in the hospital and his workup was negative. His family is asking for an excuse for his court date tomorrow. Patient's symptoms have resolved. At this time will go ahead admit patient to the hospital for observation and MRI of the brain. Monitor on telemetry as well. Denies any neck pain. Allergies No Known Allergies Allergy (Verified 07/27/18 20:27) Home Medications: NK [No Home Meds] 07/27/18 - Past Medical/Surgical History Has patient received pneumonia vaccine in the past: No Past Medical History: Patient denies medical history Past Surgical History: Patient denies surgical history - Family History Father Family History: Reviewed- Non-Contributory - Social History Smoking Status: Never smoker Alcohol use: No CD- Drugs: No Review of Systems 10-point ROS is otherwise unremarkable Physical Examination - Vital Signs Temperature: 97.6 F Blood Pressure: 134/90 Pulse: 67 Respirations: 18 Pulse Ox (%): 98 - Physical Exam General: Alert, In no apparent distress, Oriented x3 HEENT: Atraumatic, PERRLA, Mucous membr. moist/pink, EOMI, Sclerae nonicteric Neck: Supple, 2+ carotid pulse no bruit, No LAD, Without JVD or thyroid abnormality Respiratory: Clear to auscultation bilaterally, Normal air movement Cardiovascular: Regular rate/rhythm, Normal S1 S2, No murmurs Gastrointestinal: Normal bowel sounds, Soft and benign, Non-distended, No tenderness, No masses, No rebound Musculoskeletal: No clubbing, No swelling, No tenderness Integumentary: No rashes Neurological: Normal gait, Normal speech, Normal strength at 5/5 x4 extr, Normal tone, Sensation intact, Cranial nerves 3-12 intact, Normal affect Lymphatics: No axilla or inguinal lymphadenopathy - Studies Laboratory Data (last 24 hrs) 07/27/18 15:05: PT 12.9 H, INR 1.09, APTT 38.7 H 07/27/18 15:05: WBC 8.7, Hgb 14.9, Hct 43.6, Plt Count 217 07/27/18 15:05: Sodium 140, Potassium 3.9, BUN 11, Creatinine 0.85, Glucose 104 , Magnesium 2.6 H, Total Bilirubin 0.5, AST 16, ALT 56, Alkaline Phosphatase 82 Assessment & Plan - Problems (Diagnosis) (1) Left-sided weakness Current Visit: Yes Status: Acute - Plan Plan: 1. Neurochecks 2. Monitor on telemetry 3. MRI of the brain 4. Excuse for court 5. Possible discharge if workup is negative Discharge Plan: Home Plan to discharge in: 24 Hours - Advance Directives Does patient have a Living Will: No Does patient have a Durable POA for Healthcare: No - Code Status/Comfort Care Code Status Assessed: Yes Code Status: Full Code Critical Care: No Time Spent Managing PTS Care (In Minutes): 45
--- NOTE | 2018-07-28 12:37 | RAD REPORT ---
EXAM DESCRIPTION: MRI - Brain Wo Cont - 07/28/2018 12:25 pm CLINICAL HISTORY: Left sided weakness CVA symptomology, drowsiness COMPARISON: Head Brain Wo Cont dated 07/27/2018 TECHNIQUE: Multi-sequence, multiplanar MR imaging of the brain was performed without contrast. FINDINGS: No intracranial hemorrhage, hydrocephalus or extra-axial fluid collections. No edema or sh ift of midline structures. No findings to suspect brain mass. 6 x 2 mm area of restricted diffusion w ith correlate diminished ADC map signal is seen just to the right of midline in the jeff compatible w ith an nonhemorrhagic infarct. Midline structures are normally formed. Mastoid air cells and paranasal sinuses are clear. IMPRESSION: Small nonhemorrhagic 6 x 2 mm acute infarct to the right of midline within the jeff. Findings were discussed with Dr. Cabrales 12:30 p.m. 07/28/2018 by telephone.
--- NOTE | 2018-07-28 13:28 | P.PN ---
Subjective Date of Service: 07/28/18 Chief Complaint: Left-sided weakness Subjective: No new changes, No C/O voiced, Improving Patient seen and examined at bedside. Family at bedside. Chart reviewed and Case discussed with nursing staff. No complaints this am. Review of Systems 10-point ROS is otherwise unremarkable Physical Examination - Vital Signs Temperature: 97.6 F Blood Pressure: 134/90 Pulse: 67 Respirations: 18 Pulse Ox (%): 98 - Physical Exam General: Alert, In no apparent distress, Oriented x3 HEENT: Atraumatic, PERRLA, EOMI Neck: Supple, JVD not distended Respiratory: Clear to auscultation bilaterally, Normal air movement Cardiovascular: Regular rate/rhythm, Normal S1 S2 Gastrointestinal: Normal bowel sounds, No tenderness Musculoskeletal: No tenderness Integumentary: No rashes Neurological: Normal speech, Normal tone, Normal affect Lymphatics: No axilla or inguinal lymphadenopathy - Studies Laboratory Data (last 24 hrs) 07/27/18 15:05: PT 12.9 H, INR 1.09, APTT 38.7 H 07/27/18 15:05: WBC 8.7, Hgb 14.9, Hct 43.6, Plt Count 217 07/27/18 15:05: Sodium 140, Potassium 3.9, BUN 11, Creatinine 0.85, Glucose 104 , Magnesium 2.6 H, Total Bilirubin 0.5, AST 16, ALT 56, Alkaline Phosphatase 82 Assessment And Plan - Current Problems (Diagnosis) (1) Stroke Current Visit: Yes Status: Acute Qualifiers: CVA mechanism: unspecified Qualified Code(s): I63.9 - Cerebral infarction, unspecified (2) Hypertension Current Visit: Yes Status: Acute Qualifiers: Hypertension type: essential hypertension Qualified Code(s): I10 - Essential (primary) hypertension (3) Left-sided weakness Onset Date: 07/28/18 Current Visit: Yes Status: Acute (4) Non compliance with medical treatment Current Visit: Yes Status: Acute - Plan This is a 37 yr old male with: Stroke (Acute) I63.9 Left-sided weakness (Acute 07/28/18) R53.1 Improving Risk factors: HTN, FHX of early stroke, obesity Non-hemmorhagic stroke, right of midline in jeff Stroke workup pending: MRA neck, head Start ASA, plavix, statin PT and speech therapy evaluation ordered, pending. Neurology consulted, pending. Hypertension (Acute) I10 Stable at this time Allow for permissive HTN No prn meds at that time. Non compliance with medical treatment (Acute) Z91.19 DVT prophylaxis: ASA and plavix GI Prophylaxis: None Diet: NPO pending speech eval Disposition: Convert to inpatient, pending further stroke workup. Physician Review: Patient Assessed, Agree with Above Assessment and Plan Time Spent Managing PTS Care (In Minutes): 35
[2018-07-28] MEDS: ACETAMINOPHEN 500 MG TAB PO PRN (16:18)
--- NOTE | 2018-07-28 20:39 | RAD REPORT ---
EXAM DESCRIPTION: MRI - MRA Head Wo Cont - 07/28/2018 7:30 pm CLINICAL HISTORY: Stroke in jeff area CVA COMPARISON: No comparisonsBrain Wo Cont dated 07/28/2018 FINDINGS: 3D noncontrast [id number] MR angiography of the [place] was performed. No aneurysm, flow-limiting stenosis or vascular malformation is seen. Forward flow seen in codominant vertebral arteries. The visualized dural venous sinuses appear patent. IMPRESSION: No significant flow abnormality of the [place] is identified.
--- NOTE | 2018-07-28 20:49 | RAD REPORT ---
EXAM DESCRIPTION: MRI - MRA Neck W/Wo Cont - 07/28/2018 7:30 pm CLINICAL HISTORY: Stroke in jeff area CVA, brainstem COMPARISON: No comparisons FINDINGS: Contrast enhance 2D [id number] MR angiography of the neck vessels was performed. No significant carotid stenosis is seen. No evidence of carotid or vertebral artery dissection. Basil ar artery appears patent. IMPRESSION: No significant flow abnormality of the neck vessels identified.
[2018-07-28] MEDS ORDERED: ATORVASTATIN 80 MG TAB PO SCH (21:00)
[2018-07-29 05:10] LABS: Absolute Lymphocytes (CBC) 1.9 K/uL (0.7-4.9); Absolute Neutrophil 8.4 K/uL (1.8-8.0); Basophils % 0.6 % (0-1.3); Eosinophils % 3.6 % (0-4.4); Hematocrit 45.1 % (39.6-49.0); Lymphocytes % 16.4 % (15.3-44.8); MPV 9.2 fL (7.6-11.3); Monocytes % 8.4 % (3.3-12.3); RBC Red Blood Cell Count 4.96 M/uL (4.33-5.43)
[2018-07-29 05:34] LABS: Albumin 3.7 g/dL (3.4-5.0); Bilirubin Total 0.4 mg/dL (0.2-1.0); Protein, Total 6.8 g/dL (6.4-8.2)
[2018-07-29] MEDS ORDERED: CLOPIDOGREL 75 MG TABLET PO SCH (09:00)
[2018-07-29] MEDS ORDERED: ASPIRIN EC 81 MG TAB PO SCH (09:00)
--- NOTE | 2018-07-29 12:35 | ECHO ---
HEIGHT: 5 ft 4 in WEIGHT: 182 lb 1.6 oz DATE OF STUDY: 07/29/[address]: Candis Bowles MD 2-DIMENSIONAL: YES M.MODE: YES DOPPLER: YES COLOR FLOW: YES TDS: NO PORTABLE: NO DEFINITY: NO BUBBLE STUDY: NO DIAGNOSIS: STROKE CARDIAC HISTORY: CATHERIZATION: NO SURGERY: NO PROSTHETIC VALVE: NO PACEMAKER: NO MEASUREMENTS (cm) DIASTOLIC (NORMALS) SYSTOLIC (NORMALS) IVSd 1.1 (0.6-1.2) LA Diam 3.1 (1.9-4.0) LVEF 68% LVIDd 3.6 (3.5-5.7) LVIDs 2.3 (2.0-3.5) %FS 38% LVPWd 1.2 (0.6-1.2) Ao Diam 2.8 (2.0-3.7) 2 DIMENSIONAL ASSESSMENT: RIGHT ATRIUM: NORMAL LEFT ATRIUM: NORMAL RIGHT VENTRICLE: NORMAL LEFT VENTRICLE: NORMAL TRICUSPID VALVE: NORMAL MITRAL VALVE: NORMAL PULMONIC VALVE: NORMAL AORTIC VALVE: NORMAL PERICARDIAL EFFUSION: NONE AORTIC ROOT: NORMAL LEFT VENTRICULAR WALL MOTION: NORMAL DOPPLER/COLOR FLOW: NORMAL COMMENTS: NORMAL 2D ECHOCARDIOGRAM WITH DOPPLER. NO THROMBUS OR VEGETATION. NO EVIDENCE OF ATRIAL SEPTAL DEFECT. TECHNOLOGIST: Blanca TRAN
[2018-07-29] MEDS: ACETAMINOPHEN 500 MG TAB PO PRN (13:17)
--- NOTE | 2018-07-29 19:40 | CON ---
Reason For Consultation: Consultation called because of stroke. History Of Present Illness: Mr. Garcia is a 37-year-old patient with untreated hypertension and mi graines along with tension headache, who developed stroke-like symptoms on the 27 of July in the morning. The patient said he tried to get up out of bed, found his left side was weak, unable to althea r weight. His face, arm, and leg were involved. There was also some numbness. He came on the July around 2:15 in the afternoon with symptom onset had a head CT scan at 2:31. This study roberto wed no acute ischemic or hemorrhagic change. It should be noted that at the time of his evaluation i n emergency room, he apparently had resolved his symptoms with an NIH Stroke Scale of 0. However, th patient was admitted for stroke workup. Subsequently, a brain MRI done earlier today identified a 6 x 2 mm acute infarct in the right mid jeff. His neck MRA and brain MRA were unremarkable. Echocar diogram also unremarkable. Electrocardiogram showed normal sinus rhythm with minimal voltage criteri a for left ventricular hypertrophy and noted the ejection fraction on echocardiogram was 68%. The treva gutiérrez has been placed on aspirin in the emergency room and allowed to have some permissive hypertensi on. Since his hospitalization, he denies any additional weakness or recurrence and says he is back t o 100% of normal. Past Medical History: Migraines, hypertension. Medications: None. Allergies: NONE. Family History: Noncontributory. Social History: He drinks up to about 10-12 Dr. Pepper's and Coke daily. Denies tobacco or IV drug use. Review of Systems: No recent fevers, chills, nausea, vomiting, myalgias, arthralgias, headache, weight change, rash, psy chiatric complaints, or genitourinary issues. Just positive for headache and weakness as indicated. Physical Examination: Vital Signs: Blood pressure 137/84, pulse 64, respiratory rate 16, temperature 97.5. Oxygen saturat ion 96%. Weight 180 pounds, height 5 feet 4 inches, BMI 31.3. General: Mr. Garcia is resting comfortably in bed. HEENT: He is normocephalic, atraumatic. Sclerae anicteric. Oropharynx is moist and pink. Neck: Supple. Chest: Clear. Heart: Regular. Extremities: Show no edema cyanosis or clubbing. Neurologic: He is alert, oriented to person, place, situation, and time. He has no expressive or re ceptive aphasias. Cranial nerves are intact on exam on through 12. Motor examination, he has full strength in the arms and legs, 5/5 proximally and distally. His lower extremities also proximally a nd distally 5/5. Sensory examination shows normal response, light touch, temperature, and pinprick i n the arms and legs and also vibration reflexes 2+ upper and lower extremities and symmetric at the b iceps, triceps, brachioradialis, patella and heels. Coordination intact in upper and lower extremiti es. Gait, good stance, right arm swing. Laboratory Studies: Complete blood count with differential essentially unremarkable except towards t he end of the day he did have slight elevation of white count to 11.8, normal neutrophils and other d ifferentials. INR 1.09. Chemistries unremarkable. Slightly low calcium on repeat of 8.4, initial w as normal at 8.5. Triglycerides slightly elevated to 117, total cholesterol 164, LDL cholesterol 93, HDL cholesterol low at 29, cholesterol HDL ratio 5.69. Liver function studies unremarkable. Urinal ysis 2+ amorphous sediment, 1+ glucose. Assessment: Mr. Garcia is a 37-year-old patient who clinically has no evidence of a stroke. On in s MRI, apparently, a pontine stroke was identified, however, there is no obvious deficit that could b e mapped to that area. He does have a history of migraine and the differential diagnosis should incl ude complicated migraine, which may come with full recovery. However, he does have hypertension, whi ch is a big risk factor for stroke, and migraine itself is a risk factor for stroke. Plan: 1.Increase aspirin to 81 mg daily. 2.Once the patient is out of his acute stroke phase within the next 2-3 weeks, may go for normalizat ion of blood pressures. 3.The patient can use high-dose statin to help the LDL to be less than 70 and also help raise his HD L. 4.The patient was told the importance of stopping drinking Dr. Isidro and coke. The patient shoul d drink 8-10 glasses of water 8 ounces each daily and cut back significantly the use of diet Coke and Dr. Pepper's and regular Coke. Once he is discharged, he may follow up with Dr. Araujo [address] in clinic. DANIELLA/MECHE Voice ID: [id number] Report ID: [id number]
--- NOTE | 2018-07-30 12:50 | DS ---
Date of Discharge: 07/29/2018 Supervisor [employer]: Noah Araujo MD, with Neurology. Admitting Diagnosis: Left-sided weakness. Discharge Diagnoses: 1.Acute cerebrovascular accident, ischemic nonhemorrhagic right of midline in the jeff. 2.Essential hypertension. 3.Obesity, BMI 31.3. 4.Noncompliance with medical treatment. 5.Hyperlipidemia. Hospital Course: The patient is a 37-year-old male with no significant past medical history, who has a strong family history of early strokes, comes in with the left-sided weakness. The patient has pruett d similar episodes in the past. The patient was admitted to rule out cerebrovascular accident. Work up was done including MRI of the brain, which showed small nonhemorrhagic stroke in right of the midl ine in the jeff. MRA of the neck did not show any significant flow abnormality of the neck vessels. Echocardiogram was done, showed EF of 68%. No thrombus or vegetation was seen. No evidence of atri al septal defect was evident. Brain MRA showed no significant flow abnormality of the [place]. The patient was started on aspirin, Plavix, and statin. The patient has not taken aspirin befor e. Dr. Araujo with Neurology was consulted. He recommended outpatient followup after his initial evaluation. He also recommended Topamax 25 mg daily for the patient's headaches. The patient's bloo d pressure was allowed to stay on the high side due to acute stroke. However, his blood pressure ran ged from the 130s to 140s, highest was 160/97 on admission. The patient did not have any residual we akness. He did not require any physical therapy. His workup did reveal elevated triglycerides and l ow HDL. The patient was counseled regarding his activity and diet, and modifications are need to be done. The patient will need a hypercoagulable workup done by Dr. Araujo as an outpatient as the treva gutiérrez is only 37 years old with a stroke. The patient was then cleared for discharge from industrial methods consultant 's standpoint. He was sent home in a stable condition. Activity: As tolerated. Medications: As per medication reconciliation list. Followup: Follow up with primary care physician in 1 week. Establish care if the patient does not h ave PCP. Follow up with neurologist, Dr. Araujo in 2 weeks. Return to ER for worsening condition. The patient instructed to obtain blood pressure machine and to keep a log of his blood pressure, ch ecking it multiple times a day, different times of the day and to presented to his primary care physi daphnie. As of right now, the patient is in the acute window of the stroke within 72 hours to allow per missive hypertension. If his blood pressure continues to show elevated levels, he will need to be tr eated with antihypertensive diet, heart healthy. Physical Examination: General: Awake, alert, oriented x3. Obese male. CVS: S1, S2. Regular rate and rhythm. No murmurs. Respiratory: Moving air well bilaterally. No wheezing. Gastrointestinal: Abdomen is soft, nontender, nondistended. Positive bowel sounds. Extremities: No clubbing, cyanosis, or edema. Neurologic: Nonfocal. Cranial nerves 2 through 12 intact grossly. No focal neurological deficit. Strength is 5/5 bilateral upper and lower extremities. Sensation intact to light touch. Total time spent discharging the patient was 41 minutes. NAM Voice ID: [id number] Report ID: [id number]
== END 2018-07-29 15:59 | disposition home or self-care (01) | DRG 65 ==
LOC: ER 14:14 → ERHOLD 17:37 → 2ND 19:35 → OBSVTOIN 07-28 13:45
PROVIDERS: ADMIT Family Medicine; ATTEND Family Medicine
DX: I63.9 Cerebral infarction, unspecified (principal); G81.94 Hemiplegia, unspecified affecting left nondominant side; I10 Essential (primary) hypertension; E66.9 Obesity, unspecified; Z91.19 Patient's noncompliance with other medical treatment and regimen; Z68.31 Body mass index [BMI] 31.0-31.9, adult
CPT/HCPCS: 36415; 70450; 70544; 70549; 70551; 71045; 80048; 80053; 80061; 80076; 81003; 81015; 82962; 83735; 84484; 85025; 85610; 85730; 92610; 93005; 93306; 97163; 99285; A9577; G0378; J1650

== ENCOUNTER 2018-10-01 09:32 | Emergency (ER) | payer SELFPAY ==
--- OUTSIDE RECORDS SUMMARY | 2018-10-01 09:46 | XMS REPORT ---
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 Problem Sleep disturbance G47.9 Active Problem Cerebrovascular accident (CVA), I63.9 Active unspecified mechanism Problem Hyperlipidemia, unspecified E78.5 Active hyperlipidemia type Medications Medication Code Code Instructions Start End Date Status Dosage System Date Lisinopril [facility] 88304375735 10 MG Orally Aug 04, Active 1 tablet Once a day 2018 Topiramate [facility] 71716985172 50 MG Orally Active 1 tablet bid Sumatriptan [facility] 86704449420 50 MG Orally Sep 02, Active 1 tablet Succinate Once a day 2018 as needed Atorvastatin [facility] 38977683093 80 MG Orally Active 1 tablet Calcium Once a day Butalbital-APAP- [facility] 10967439659 30-870-61-30 MG Sep 02September Active 1 capsule Caff-Cod Orally every 4 2018 as needed hrs Aspirin [facility] 69418229464 81 MG Orally Active 1 tablet Once a day Results No Known Results Summary Purpose [employer] Submission
--- OUTSIDE RECORDS SUMMARY | 2018-10-01 09:46 | XMS REPORT ---
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
--- OUTSIDE RECORDS SUMMARY | 2018-10-01 09:46 | XMS REPORT ---
:1980 Author Organization [employer] Care Team Providers Name Role Phone Christ Hawk Provider Role Unavailable Allergies, Adverse Reactions, Alerts Substance Reaction Event Type N.K.D.A. Info Not Available Non Drug Allergy Problems Problem Type Condition Code Onset Dates Condition Status Assessment Family history of diabetes during Z83.3 Active Assessment Sleep disturbance G47.9 Active Assessment History of CVA with residual deficit I69.30 Active Problem History of CVA with residual deficit I69.30 Active Problem Cerebrovascular accident (CVA), I63.9 Active unspecified mechanism Problem Essential hypertension I10 Active Assessment Essential hypertension I10 Active Problem Hyperlipidemia, unspecified E78.5 Active hyperlipidemia type Problem Sleep disturbance G47.9 Active Medications Medication Code Code Instructions Start End Status Dosage System Date Date Atorvastatin [facility] [place] 13220810665 80 MG Orally Active 1 tablet Calcium Once a day Aspirin [facility] [place] 01055348909 81 MG Orally Active 1 tablet Once a day Lisinopril [place] 54182061728 5 MG Orally Aug 04, Active 1 tablet Once a day 2018 Topiramate [facility] [place] [address]-47 25 MG Orally Active 1 tablet Once a day Results No Known Results Summary Purpose [employer] Submission
--- OUTSIDE RECORDS SUMMARY | 2018-10-01 09:46 | XMS REPORT ---
:1980 Author Organization [employer] Care Team Providers Name Role Phone Christ Hawk Provider Role Unavailable Allergies No Known Allergies Problems Problem Type Condition Code Onset Dates Condition Status Assessment History of CVA with residual deficit I69.30 Active Problem History of CVA with residual deficit I69.30 Active Problem Cerebrovascular accident (CVA), I63.9 Active unspecified mechanism Problem Essential hypertension I10 Active Assessment Cerebrovascular accident (CVA), I63.9 Active unspecified mechanism Problem Hyperlipidemia, unspecified E78.5 Active hyperlipidemia type Problem Sleep disturbance G47.9 Active Medications No Known Medications Results No Known Results Summary Purpose [employer]Works Submission
--- OUTSIDE RECORDS SUMMARY | 2018-10-01 09:46 | XMS REPORT ---
:1980 Author Organization [employer] Care Team Providers Name Role Phone Christ Hawk Provider Role Unavailable Allergies No Known Allergies Problems Problem Type Condition Code Onset Dates Condition Status Problem History of CVA with residual deficit I69.30 Active Problem Cerebrovascular accident (CVA), I63.9 Active unspecified mechanism Problem Essential hypertension I10 Active Problem Hyperlipidemia, unspecified E78.5 Active hyperlipidemia type Problem Sleep disturbance G47.9 Active Medications Medication Code Code Instructions Start End Status Dosage System Date Date Topiramate [facility] 17056154734 25 MG Orally Active 1 tablet Once a day Atorvastatin ND 47532912158 80 MG Orally Active 1 tablet Calcium Once a day Results No Known Results Summary Purpose eClinicalWorks Submission
[2018-10-01] MEDS ORDERED: MORPHINE 4 MG/ML SYR ONE ×2 (10:19→10:52)
[2018-10-01] MEDS ORDERED: ONDANSETRON 4 MG/2 ML VIAL ONE (10:19)
[2018-10-01] MEDS ORDERED: NA CHLORIDE 0.9% 1,000 ML ONE (10:19)
[2018-10-01 10:25] LABS: Absolute Lymphocytes (CBC) 2.8 K/uL (0.7-4.9); Absolute Neutrophil 5.9 K/uL (1.8-8.0); Basophils % 0.9 % (0-1.3); Eosinophils % 2.2 % (0-4.4); Hematocrit 44.9 % (39.6-49.0); Lymphocytes % 28.1 % (15.3-44.8); MPV 9.5 fL (7.6-11.3); Monocytes % 10.1 % (3.3-12.3); RBC Red Blood Cell Count 4.98 M/uL (4.33-5.43)
[2018-10-01 10:51] LABS: ALT/SGPT 48 U/L (12-78); AST/SGOT 19 U/L (15-37); Albumin 4.3 g/dL (3.4-5.0); Alkaline Phosphatase 107 U/L (45-117); BUN Blood Urea Nitrogen 20 mg/dL (7-18); Bicarbonate 20 mmol/L (21-32); Bilirubin Direct < 0.1 mg/dL (0-0.2); Bilirubin Total 0.3 mg/dL (0.2-1.0); Glucose Level 167 mg/dL (74-106); Lipase 213 U/L (73-393); Potassium 3.5 mmol/L (3.5-5.1); Protein, Total 7.3 g/dL (6.4-8.2); Sodium Level 143 mmol/L (136-145)
[2018-10-01 11:57] LABS: Urine Blood 3+ (NEG); Urine Glucose NEGATIVE (NEG); Urine Protein 1+ (NEG); Urine Specific Gravity 1.025 (1.005-1.030)
--- NOTE | 2018-10-01 12:04 | RAD REPORT ---
EXAM DESCRIPTION: CTAbdomen Pelvis W Contrast - 10/01/2018 11:57 am CLINICAL HISTORY: Abdominal pain. RLQ abdomen pain COMPARISON: No comparisons TECHNIQUE: Biphasic CT imaging of the abdomen and pelvis was performed with 100 ml non-ionic IV cont rast. All CT scans are performed using dose optimization technique as appropriate and may include automated exposure control or mA/KV adjustment according to patient size. FINDINGS: The lung bases are clear.Small hiatal hernia is seen. The liver, spleen, pancreas, adrenal glands and kidneys are within normal limits. There is fat strand ing seen surrounding the right ureter suggesting ascending urinary tract infection. No bowel obstruction, free air, free fluid or abscess. The appendix is not identified as a discrete structure, however, no secondary findings of appendicitis are identified. No evidence of significan t lymphadenopathy. No suspicious bony findings. IMPRESSION: Ascending right-sided urinary tract infection is suspected with inflammatory changes feli rounding the right ureter noted. The appendix is not discretely visualized, however no secondary find ings of acute appendicitis are seen in the right lower quadrant.
[2018-10-01 12:25] LABS: Urine Bacteria <20 /HPF (NONE SEEN)
[2018-10-01 12:26] LABS: Urine Culture Reflex Order NOT NEEDED; Urine Mucus 1+ /HPF (NONE SEEN)
--- NOTE | 2018-10-01 12:38 | ER ---
Nurse's Notes [facility] Name: Suyapa Garcia Age: 37 yrs Sex: Male : 1980 Arrival Date: 10/01/2018 Time: 09:34 Bed 2 Private MD: Diagnosis: Lower abdominal pain, unspecified Presentation: 10/01 10:18 Presenting complaint: Patient states: Lower right abdominal pain that radiates to the aj1 back since 0900 this morning. Reports nausea, denies vomiting, diarrhea. Denies fever. Transition of care: patient was not received from another setting of care. Onset of symptoms was October 01, 2018 at 09:00. Risk Assessment: Do you want to hurt yourself or someone else? Patient reports no desire to harm self or others. Initial Sepsis Screen: Does the patient meet any 2 criteria? No. Patient's initial sepsis screen is negative. Does the patient have a suspected source of infection? Yes: Acute abdominal pain. Care prior to arrival: None. 10:18 Method Of Arrival: Wheelchair aj1 10:18 Acuity: MAYRA 3 aj1 Triage Assessment: 10:20 General: Appears uncomfortable, Behavior is cooperative, restless. Pain: Complains of aj1 pain in right lower quadrant. GI: Reports lower abdominal pain. Historical: - Allergies: 10:20 No Known Allergies; aj1 - PMHx: 10:20 Hypertension; CVA; aj1 - PSHx: 10:20 None; aj1 - Immunization history:: Adult Immunizations up to date, Flu vaccine is not up to date. - Social history:: Smoking status: Patient/guardian denies using tobacco. - Ebola Screening: : Patient denies travel to an Ebola-affected area in the 21 days before illness onset. Screenin:18 Abuse screen: Denies threats or abuse. Denies injuries from another. Nutritional aj1 screening: No deficits noted. Tuberculosis screening: No symptoms or risk factors identified. 13:13 Fall Risk None identified. aj1 Assessment: 10:18 General: Appears uncomfortable, Behavior is calm, cooperative, appropriate for age. aj1 Pain: Complains of pain in right lower quadrant Pain radiates to back Pain currently is 10 out of 10 on a pain scale. Pain began 1 hour ago. Neuro: Level of Consciousness is awake, alert, obeys commands, Oriented to person, place, time, situation. Cardiovascular: Patient's skin is warm and dry. Respiratory: Airway is patent Respiratory effort is even, unlabored, Respiratory pattern is regular, symmetrical. GI: Abdomen is flat, non-distended, Bowel sounds present X 4 quads. Abd is soft X 4 quads Abdomen is tender to palpation in right upper quadrant and right lower quadrant Reports nausea, Patient currently denies diarrhea, vomiting. : No signs and/or symptoms were reported regarding the genitourinary system. EENT: No signs and/or symptoms were reported regarding the EENT system. Derm: No signs and/or symptoms reported regarding the dermatologic system. Skin is pink, warm \T\ dry. normal. Musculoskeletal: No signs and/or symptoms reported regarding the musculoskeletal system. Circulation, motion, and sensation intact. 10:40 Reassessment: Patient states that he is still having a lot of pain. Notified Jeanie Cornelius, aj1 PA. Order received. 11:30 Reassessment: Patient appears in no apparent distress at this time. No changes from aj1 previously documented assessment. Patient and/or family updated on plan of care and expected duration. Pain level reassessed. Patient is alert, oriented x 3, equal unlabored respirations, skin warm/dry/pink. Patient states feeling better. 12:30 Reassessment: Patient appears in no apparent distress at this time. No changes from aj1 previously documented assessment. Patient and/or family updated on plan of care and expected duration. Pain level reassessed. Patient is alert, oriented x 3, equal unlabored respirations, skin warm/dry/pink. 13:12 Reassessment: Patient appears in no apparent distress at this time. No changes from aj1 previously documented assessment. Patient and/or family updated on plan of care and expected duration. Pain level reassessed. Vital Signs: 10:20 BP 160 / 115; Pulse 73; Resp 18; Temp 97.8; Pulse Ox 100% on R/A; Weight 77.11 kg (R); aj1 Height 5 ft. 4 in. (162.56 cm) (R); Pain 10/10; 11:00 BP 158 / 97; Pulse 80; Resp 18; Pulse Ox 100% ; sv 13:13 BP 118 / 69; Pulse 56; Resp 16; Pulse Ox 100% on R/A; aj1 10:20 Body Mass Index 29.18 (77.11 kg, 162.56 cm) aj1 ED Course: 09:34 Patient arrived in ED. as 09:55 Orestes Cornelius PA is PHCP. cp 09:55 Orestes Hu MD is Attending Physician. cp 10:18 Ivonne Steen, ARTUR is Primary Nurse. aj1 10:18 Patient has correct armband on for positive identification. Bed in low position. Call aj1 light in reach. Side rails up X 1. 10:18 No provider procedures requiring assistance completed. Initial lab(s) drawn, by me, aj1 sent to lab. Inserted saline lock: 20 gauge in right antecubital area, using aseptic technique. Blood collected. 10:19 Triage completed. aj1 10:20 Arm band placed on. aj1 11:31 Urine collected: clean catch specimen, cloudy, payton colored. jb1 11:57 CT Abd/Pelvis - W/Contrast: give oral contrast In Process Unspecified. EDMS 11:57 CT completed. Patient tolerated procedure well. Patient moved to CT via wheelchair. sj Patient moved back from CT. 13:13 IV discontinued, intact, bleeding controlled, No redness/swelling at site. Pressure aj1 dressing applied. Administered Medications: 10:23 Drug: Zofran 4 mg Route: IVP; Site: right antecubital; aj1 10:40 Follow up: Response: No adverse reaction aj1 10:23 Drug: NS 0.9% 1000 ml Route: IV; Rate: 1 bolus; Site: right antecubital; aj1 11:30 Follow up: IV Status: Completed infusion; IV Intake: 1000ml aj1 10:24 Drug: morphine 4 mg Route: IVP; Site: right antecubital; aj1 10:40 Follow up: Response: No adverse reaction; Pain is unchanged, physician notified aj1 10:43 Drug: morphine 4 mg Route: IVP; Site: right antecubital; aj1 11:15 Follow up: Response: No adverse reaction; Pain is decreased aj1 Intake: 11:30 IV: 1000ml; Total: 1000ml. aj1 Outcome: 12:37 Discharge ordered by . cp 13:13 Discharged to home ambulatory. aj1 13:13 Condition: good 13:13 Discharge instructions given to patient, Instructed on discharge instructions, follow up and referral plans. medication usage, Demonstrated understanding of instructions, follow-up care, medications, Prescriptions given X 1. 13:22 Patient left the ED. aj1 Signatures: Dispatcher [employer] EDPb Haji1 Ivonne Steen RN RN aj1 Nilda Martin RN RN sv Jones, Lou Juarez, Orestes Berrios PA PA cp
--- NOTE | 2018-10-01 12:38 | EDPHYS ---
Physician Documentation [facility] Name: Suyapa Garcia Age: 37 yrs Sex: Male : 1980 Arrival Date: 10/01/2018 Time: 09:34 Bed 2 Private MD: ED Physician Orestes Hu HPI: 10/01 10:05 This 37 yrs old Male presents to ER via Wheelchair with complaints of cp Abdominal Pain, Back Pain. 10:05 The patient presents with abdominal pain right lower quadrant. Onset: The cp symptoms/episode began/occurred this morning. The symptoms radiate to right back. Associated signs and symptoms: Pertinent positives: nausea, Pertinent negatives: blood in stools, constipation, diarrhea, dysuria, fever, hematuria, testicular pain, vomiting. Severity of pain: in the emergency department the pain is unchanged despite home interventions. Historical: - Allergies: 10:20 No Known Allergies; aj1 - PMHx: 10:20 Hypertension; CVA; aj1 - PSHx: 10:20 None; aj1 - Immunization history:: Adult Immunizations up to date, Flu vaccine is not up to date. - Social history:: Smoking status: Patient/guardian denies using tobacco. - Ebola Screening: : Patient denies travel to an Ebola-affected area in the 21 days before illness onset. ROS: 10:10 Constitutional: Negative for fever, poor PO intake. cp 10:10 Eyes: Negative for injury, pain, redness, and discharge. cp 10:10 ENT: Negative for drainage from ear(s), ear pain, sore throat, difficulty swallowing, difficulty handling secretions. 10:10 Cardiovascular: Negative for chest pain. 10:10 Respiratory: Negative for cough, shortness of breath, wheezing. 10:10 Abdomen/GI: Positive for abdominal pain, nausea, Negative for vomiting, diarrhea, constipation, black/tarry stool, rectal bleeding. 10:10 Back: Positive for radiated pain. 10:10 : Negative for urinary symptoms, testicular pain 10:10 Skin: Negative for cellulitis, rash. 10:10 All other systems are negative. Exam: 10:15 Constitutional: The patient appears in no acute distress, alert, awake, non-toxic, well cp developed, well nourished, uncomfortable. 10:15 Head/Face: Normocephalic, atraumatic. cp 10:15 Eyes: Periorbital structures: appear normal, Conjunctiva: normal, no exudate, no injection, Sclera: no appreciated abnormality, Lids and lashes: appear normal, bilaterally. 10:15 ENT: External ear(s): are unremarkable, Nose: is normal, Mouth: Lips: moist, Oral mucosa: moist, Posterior pharynx: Airway: no evidence of obstruction, patent. 10:15 Neck: ROM/movement: is normal, is supple, without pain, no range of motions limitations, no nuchal rigidity. 10:15 Chest/axilla: Inspection: normal, Palpation: is normal, no crepitus, no tenderness. 10:15 Cardiovascular: Rate: normal, Rhythm: regular. 10:15 Respiratory: the patient does not display signs of respiratory distress, Respirations: normal, no use of accessory muscles, no retractions, no splinting, no tachypnea, labored breathing, is not present, Breath sounds: are clear throughout, no decreased breath sounds, no stridor, no wheezing. 10:15 Abdomen/GI: Inspection: abdomen appears normal, Bowel sounds: active, all quadrants, Palpation: soft, in all quadrants, severe abdominal tenderness, in the umbilical area and right lower quadrant, rebound tenderness, is not appreciated, voluntary guarding, is elicited in the umbilical area and right lower quadrant. 10:15 Back: pain, that is moderate, of the right low back, ROM is painful. 10:15 Skin: cellulitis, is not appreciated, no rash present. Vital Signs: 10:20 BP 160 / 115; Pulse 73; Resp 18; Temp 97.8; Pulse Ox 100% on R/A; Weight 77.11 kg (R); aj1 Height 5 ft. 4 in. (162.56 cm) (R); Pain 10/10; 11:00 BP 158 / 97; Pulse 80; Resp 18; Pulse Ox 100% ; sv 13:13 BP 118 / 69; Pulse 56; Resp 16; Pulse Ox 100% on R/A; aj1 10:20 Body Mass Index 29.18 (77.11 kg, 162.56 cm) aj1 MDM: 09:55 Patient medically screened. cp 12:36 Data reviewed: vital signs, nurses notes, lab test result(s), radiologic studies, CT cp scan, and as a result, I will discharge patient. 12:36 Counseling: I had a detailed discussion with the patient and/or guardian regarding: the cp historical points, exam findings, and any diagnostic results supporting the discharge/admit diagnosis, lab results, radiology results, to return to the emergency department if symptoms worsen or persist or if there are any questions or concerns that arise at home. Response to treatment: the patient's symptoms have markedly improved after treatment, VSS. Pain markedly improved. Patient appeared to pass small stone in urine while in ED with pain markedly improving. Will discharge to home for continued monitoring. 10/01 10:01 Order name: Basic Metabolic Panel; Complete Time: 11:02 10/01 11:02 Interpretation: Normal except: CL 111; CO2 20; GLUC 167; BUN 20; GFR 68. 10/01 10:01 Order name: CBC with Diff; Complete Time: 11:02 10/01 10:01 Order name: Creatinine for Radiology; Complete Time: 11:02 10/01 10:01 Order name: Hepatic Function; Complete Time: 11:02 10/01 10:01 Order name: Lipase; Complete Time: 11:02 10/01 10:01 Order name: Urine Microscopic Only; Complete Time: 12:27 10/01 12:27 Interpretation: Normal except: URBC 10-20; SQEPI 5-10. 10/01 10:01 Order name: IV Saline Lock; Complete Time: 10:24 cp 10/01 10:01 Order name: Labs collected and sent; Complete Time: 10:24 10/01 10:01 Order name: CT Abd/Pelvis - W/Contrast: give oral contrast; Complete Time: 12:05 10/01 12:35 Interpretation: Report reviewed. 10/01 11:32 Order name: Urine Dipstick--Ancillary (enter results); Complete Time: 12:05 10/01 12:05 Interpretation: Normal except: UBLD 3+; UPROT 1+. 10/01 10:01 Order name: Urine Dipstick-Ancillary (obtain specimen); Complete Time: 11:31 cp Administered Medications: 10:23 Drug: Zofran 4 mg Route: IVP; Site: right antecubital; aj1 10:40 Follow up: Response: No adverse reaction aj1 10:23 Drug: NS 0.9% 1000 ml Route: IV; Rate: 1 bolus; Site: right antecubital; aj1 11:30 Follow up: IV Status: Completed infusion; IV Intake: 1000ml aj1 10:24 Drug: morphine 4 mg Route: IVP; Site: right antecubital; aj1 10:40 Follow up: Response: No adverse reaction; Pain is unchanged, physician notified aj1 10:43 Drug: morphine 4 mg Route: IVP; Site: right antecubital; aj1 11:15 Follow up: Response: No adverse reaction; Pain is decreased aj1 Disposition: 10/01/18 12:37 Discharged to Home. Impression: Lower abdominal pain, unspecified. - Condition is Stable. - Discharge Instructions: Abdominal Pain, Adult. - Prescriptions for Ibuprofen 800 mg Oral Tablet - take 1 tablet by ORAL route every 8 hours As needed take with food; 30 tablet. - Medication Reconciliation Form, Thank You Letter, Antibiotic Education, Prescription Opioid Use form. - Follow up: Emergency Department; When: As needed; Reason: Worsening of condition. - Problem is new. - Symptoms have improved. Addendum: 10/02/2018 14:16 Co-signature as Attending Physician, Orestes Hu MD I agree with the assessment and c pruett plan of care. Signatures: Dispatcher [employer] EDIvonne Bailey RN RN aj1 Orestes Hu MD MD cha Page, Corey, PA PA cp Corrections: (The following items were deleted from the chart) 10/01 13:22 12:37 10/01/2018 12:37 Discharged to Home. Impression: Lower abdominal pain, aj1 unspecified. Condition is Stable. Forms are Medication Reconciliation Form, Thank You Letter, Antibiotic Education, Prescription Opioid Use. Follow up: Emergency Department; When: As needed; Reason: Worsening of condition. Problem is new. Symptoms have improved. cp
== END 2018-10-01 13:22 | disposition home or self-care (01) ==
LOC: ER 09:32
DX: R10.31 Right lower quadrant pain (principal)
CPT/HCPCS: 36415; 74177; 80048; 80076; 81003; 81015; 83690; 85025; 96361; 96374; 96375; 99284; J2405; J7030; Q9967

== ENCOUNTER 2020-10-26 22:20 | Emergency (ER) | payer OTHER, SELFPAY ==
--- OUTSIDE RECORDS SUMMARY | 2020-10-26 22:23 | XMS REPORT | Continuity of Care Document ---
:[address] [facility] t Address [address] [place] [address] Care Team Providers Name Role Phone Bill Fleming MD Attending Clinician Wero Nelson Attending Clinician Problems Condition Condition Condition Status Onset Resolution Last Treating Co mments Source Name Details Category Date Date Treatment Clinician Date Cough Problem Active 2019-07-13 Memor ia (finding) 01:03:30 l Cough [place] (finding) Active Problem 07/13/2019 [facility] Dizziness Problem Active 2019-07-13 Me moria (finding) 01:03:30 l Jared Dizziness (finding) Active Problem 07/13/2019 [facility] Headache Problem Active 2019-07-13 Mem oria (finding) 01:03:30 l Headache Tony n (finding) Active Problem 07/13/2019 [facility] Hyperlipid Problem Active 2019-07-13 M emoria emia 01:03:30 l (disorder) Tony n Hyperlipid emia (disorder) Active Problem 07/13/2019 [facility] Hypertensi Problem Active 2019-07-13 M emoria ve 01:03:30 l disorder, Jared systemic Hypertensi arterial ve (disorder) disorder, systemic arterial (disorder) Active Problem 07/13/2019 [facility] Impairment Problem Active 2019-07-13 M emoria of balance 01:03:30 l (finding) [place] Impairment of balance (finding) Active Problem 07/13/2019 [facility] Migraine Problem Active 2019-07-13 Mem oria (disorder) 01:03:30 l Migraine Tony n (disorder) Active Problem 07/13/2019 [facility] Simple Problem Active 2019-07-13 Mem[facility] ia obesity 01:03:30 l (disorder) Simple Herm catrachita obesity (disorder) Active Problem 07/13/2019 [facility] Sleep Sleep Problem Active [facility] disturb[facility] disturb[facility] History of History of Problem Active [facility] with [facility] - residual residual [facility] deficit deficit l Outpati ent Clinics Cerebrovas Cerebrovas Problem Active [facility] cular cular [facility] - accident accident Memori a (CVA), (CVA), l unspecifie unspecifie Ou tpati d d ent mechanism mechanism Clin ics Essential Essential Problem Active [facility] hypertensi hypertensi [facility] - on on [facility]ics Hyperlipid Hyperlipid Problem Active [facility] emia, emia, [facility] - unspecifie unspecifie Me moria d d l hyperlipid hyperlipid Ou tpati emia type emia type ent Clinics 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 [facility] - post-traum post-traum Me moria atic atic l headache headache Outpat i ent Clinics Aphagia Problem Active 2019-07-13 Josef pearl (finding) 01:03:30 l Aphagia Jared (finding) Active Problem 07/13/2019 [facility] Aphasia Problem Active 2019-07-13 Josef pearl (finding) 01:03:30 l Aphasia Jared (finding) Active Problem 07/13/2019 [facility] Blurring Problem Active 2019-07-13 Mem oria of visual 01:03:30 l image Blurring Tony n (finding) of visual image (finding) Active Problem 07/13/2019 [facility] Cerebrovas Problem Active 2019-07-13 M emoria cular 01:03:30 l accident [place] (disorder) Cerebrovas cular accident (disorder) Active Problem 07/13/2019 [facility] Allergies, Adverse Reactions, Alerts This patient has no known allergies or adverse reactions. Social History Social Habit Start Date Stop Date Quantity Comments Source Social History 2018-11-28 2018-11-28 [facility] 19:03:56 19:03:56 Medications Ordered Filled Start Stop Current Ordering Indication Dosage Frequency Signature Comments Components Source Medication Medication Date Date Medication? Clinician (SIG) Name Name propranolol Yes 10 mg = 1 M emoria 10 mg oral 8-15 tab, PO, l tablet 19:31: BID, # 60 Tony n 00 tab, 3 Refill(s), Pharmacy: [facility] [id number] topiramate Yes 50 mg, PO, M emoria 5-10 BID, 0 l 18:59: Refill(s) Aspirin 2018-0 Yes 81 mg, PO, Josef pearl 5-10 Daily, 0 l 18:59: Refill(s) atorvastati 0 Yes 80 mg, PO, Memoria n 5-10 Daily, 0 l 18:59: Refill(s) Lisinopril Yes 10 mg, PO, M emoria 5-10 Daily, 0 l 18:59: Refill(s) Lisinopril Lisinopril Yes Christ [address] [facility] Atorvastati Atorvastati Yes Christ [address] [facility] n Calcium n Calcium [facility] Vital Signs Vital Name Observation Time Observation Value Comments Source Systolic (mm Hg) 2019-03-05 19:18:00 Josef rial Jared Diastolic (mm Hg) 2019-03-05 19:18:00 Mem orial Jared Heart Rate 2019-03-05 19:18:00 [facility] Respitory Rate 2019-03-05 19:18:00 Memori al Jared Height 2019-03-05 19:18:00 162.56 cm [facility] [place] Weight 2019-03-05 19:18:00 [facility] [place] BMI Calculated 2019-03-05 19:18:00 Memori al [place] Weight 2018-11-28 18:55:00 [facility] BMI Calculated 2018-11-28 18:55:00 Memori al Jared Height 2018-11-28 18:55:00 162.56 cm [facility] [place] Respitory Rate 2018-11-28 18:55:00 Memori al Jared Heart Rate 2018-11-28 18:55:00 [facility] [place] Systolic (mm Hg) 2018-11-28 18:55:00 Josef rial Jared Diastolic (mm Hg) 2018-11-28 18:55:00 Mem orial Jared Procedures This patient has no known procedures. Encounters Start End Encounter Admission Attending Care Care Encounter Source Date/Time Date/Time Type Type Clinicians Facility Department ID 2020-03-11 2020-03-11 Office MO Fleming [id number] 09:36:05 10:16:57 Visit Bill Rose [id number] Danny [id number] Iker [id number] [facility] 2019-07-09 2019-07-10 Outpatient MHMISCHER MHMISCHER [id number] 09:41:21 23:59:59 00 2019-06-05 2019-06-05 Outpatient LYNDSEY NelsonSCHER MISCHER [id number] 14:00:00 14:00:00 Robbie 03 [facility] 2019-03-05 2019-03-05 Outpatient LYNDSEY NelsonSCHER MISCHER [id number] 14:00:00 23:59:59 Robbie 02 [facility] 2019-01-16 2019-01-16 [facility] [id number] [facility] 15:51:00 15:51:00 [facility] 2019-01-02 2019-01-02 Outpatient PATRICK NelsonMISCHER MHMISCHER [id number] 10:00:00 10:00:00 Robbie [facility] 2018-11-28 2018-11-28 Outpatient LYNDSEY NelsonSCHER MHMISCHER [id number] 13:45:00 23:59:59 Robbie 00 [facility] 2018-10-10 2018-10-10 [facility] [id number] [facility] 09:30:00 09:30:00 [facility] Out[facility] ent Clin[facility] 2018-09-02 2018-09-02 [facility] [id number] [facility] [address] 16:00:00 16:00:00 [facility] 2018-09-01 2018-09-01 [facility] [id number] [facility] [address] 12:49:00 12:49:00 [facility] 2018-08-26 2018-08-26 [facility] [id number] [address] 12:01:00 12:01:00 [facility] 2018-08-21 2018-08-21 [facility] [id number] [facility] [address] 08:55:00 08:55:00 [facility] 2018-08-08 2018-08-08 [facility] [id number] [facility] 15:57:00 15:57:00 [facility] 2018-08-04 2018-08-04 [facility] [id number] [facility] 11:00:00 11:00:00 [facility] Results This patient has no known results.
[2020-10-27] MEDS ORDERED: HYDROCODONE/APAP 5/325 MG TAB ONE (02:48)
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
[2020-10-27 20:37] VITALS: BP 141/90; TEMP 97.8; O2SAT 100
== END 2020-10-27 02:58 | disposition home or self-care (01) ==
LOC: ER 22:20
DX: S22.42XA Multiple fractures of ribs, left side, initial encounter for closed fracture (principal); Y04.2XXA Assault by strike against or bumped into by another person, initial encounter; Y93.64 Activity, baseball; Y92.9 Unspecified place or not applicable; Z86.73 Personal history of transient ischemic attack (TIA), and cerebral infarction without residual deficits; I10 Essential (primary) hypertension
CPT/HCPCS: 70450; 71250; 99283

== ENCOUNTER 2020-12-16 17:50 | Emergency (ER) | payer OTHER ==
--- OUTSIDE RECORDS SUMMARY | 2020-12-16 17:53 | XMS REPORT | Continuity of Care Document ---
:1980 Author Organization [facility] t Address [address] [place] [address] Care Team Providers Name Role Phone Bill Fleming MD Attending Clinician Wero Nelson Attending Clinician Problems Condition Condition Condition Status Onset Resolution Last Treating Co mments Source Name Details Category Date Date Treatment Clinician Date Cough Problem Active 2019-07-13 Memor ia (finding) 01:03:30 l Cough Jared (finding) Active Problem 07/13/2019 [facility] Dizziness [...] M emoria of balance 01:03:30 l (finding) [place] Impairment of balance (finding) Active Problem 07/13/2019 [...] 2019-07-13 Josef pearl (finding) 01:03:30 l Aphasia [place] (finding) Active Problem 07/13/2019 [facility] Blurring Problem Active 2019-07-13 Mem oria of visual 01:03:30 l image Blurring Tony n (finding) of visual image (finding) Active Problem 07/13/2019 [facility] Cerebrovas Problem Active 2019-07-13 M emoria cular 01:03:30 l accident Jared (disorder) Cerebrovas cular accident (disorder) Active Problem [...] Tony n 00 tab, 3 Refill(s), Pharmacy: [facility] [id number] topiramate Yes 50 mg, PO, M emoria [...] orial Jared Heart Rate 2019-03-05 19:18:00 [facility] [place] Respitory Rate 2019-03-05 19:18:00 Memori al [place] Height 2019-03-05 19:18:00 162.56 cm [facility] [place] Weight 2019-03-05 19:18:00 [facility] [place] BMI Calculated 2019-03-05 19:18:00 Memori al [place] Weight 2018-11-28 18:55:00 [facility] BMI Calculated 2018-11-28 18:55:00 Memori al [place] Height 2018-11-28 18:55:00 162.56 cm [facility] Respitory Rate 2018-11-28 18:55:00 Memori al [place] Heart Rate 2018-11-28 18:55:00 [facility] Systolic (mm Hg) 2018-11-28 18:55:00 Josef rial [place] Diastolic (mm Hg) 2018-11-28 18:55:00 Mem orial Jared Procedures This patient has no known procedures. Encounters Start End Encounter Admission Attending Care Care Encounter Source Date/Time Date/Time Type Type Clinicians Facility Department ID 2020-03-11 2020-03-11 Office MO Fleming [id number] 09:36:05 10:16:57 Visit Bill Rose [id number] Danny [id number] I[place] [id number] count includes the [facility] 2019-07-09 2019-07-10 Outpatient MHMISCHER MHMISCHER [id number] 09:41:21 23:59:59 00 2019-06-05 2019-06-05 Outpatient LYNDSEY NelsonSCHER MISCHER [id number] 14:00:00 14:00:00 Robbie 03 [facility] 2019-03-05 2019-03-05 Outpatient LYNDSEY NelsonSCHER MISCHER [id number] 14:00:00 23:59:59 Robbie 02 [facility] 2019-01-16 2019-01-16 [facility] [id number] [facility] [address] 15:51:00 15:51:00 [facility] 2019-01-02 2019-01-02 Outpatient PATRICK NelsonMISCHER MHMISCHER [id number] 10:00:00 10:00:00 Robbie [facility] 2018-11-28 2018-11-28 Outpatient LYNDSEY NelsonSCHER MHMISCHER [id number] 13:45:00 23:59:59 Robbie 00 [facility] 2018-10-10 2018-10-10 [facility] [id number] [facility] 09:30:00 09:30:00 [facility] Outpati ent Clinics 2018-09-02 2018-09-02 [facility] [id number] [facility] [address] 16:00:00 16:00:00 [facility] Outpati ent [facility] 2018-09-01 2018-09-01 [facility] [id number] [facility] [address] 12:49:00 12:49:00 [facility] Medicine Outpati ent Clinics 2018-08-26 2018-08-26 [facility] [id number] [facility] [address] 12:01:00 12:01:00 [facility] Outpati ent Clinics 2018-08-21 2018-08-21 [facility] [id number] [facility] [address] 08:55:00 08:55:00 [facility] Outpati ent Clinics 2018-08-08 2018-08-08 [facility] [id number] [facility] 15:57:00 15:57:00 [facility] Outpati ent Clinics 2018-08-04 2018-08-04 [facility] [id number] [facility] [address] 11:00:00 11:00:00 [facility] Clinics Results This patient has no known results.
[2020-12-16 22:36] LABS: Absolute Lymphocytes (CBC) 2.3 K/uL (0.7-4.9); Basophils % 0.8 % (0-1.3); Hematocrit 41.9 % (39.6-49.0); MPV 9.6 fL (7.6-11.3); RBC Red Blood Cell Count 4.52 M/uL (4.33-5.43)
[2020-12-16 22:45] LABS: Urine Bacteria LOADED /HPF (NONE SEEN); Urine RBC <5 /HPF (NONE SEEN)
[2020-12-16 22:46] LABS: Urine Amorphous Sediment 3+ /HPF (NONE SEEN); Urine Mucus 1+ /HPF (NONE SEEN)
[2020-12-16 22:46] LABS: ALT/SGPT 37 U/L (12-78); AST/SGOT 18 U/L (15-37); Albumin 4.2 g/dL (3.4-5.0); Alkaline Phosphatase 96 U/L (45-117); BUN Blood Urea Nitrogen 15 mg/dL (7-18); Bicarbonate 25 mmol/L (21-32); Bilirubin Direct < 0.1 mg/dL (0-0.2); Bilirubin Total 0.3 mg/dL (0.2-1.0); Glucose Level 85 mg/dL (74-106); Lipase 354 U/L (73-393); Potassium 3.4 mmol/L (3.5-5.1); Protein, Total 7.4 g/dL (6.4-8.2); Sodium Level 143 mmol/L (136-145)
[2020-12-16] MEDS ORDERED: NA CHLORIDE 0.9% 1,000 ML ONE (23:42)
[2020-12-16] MEDS ORDERED: KETOROLAC 30 MG/ML INJ ONE (23:42)
[2020-12-16] MEDS ORDERED: CEFTRIAXONE/SWI 1gm 1 GM/10 ML SYR ONE (23:55)
--- NOTE | 2020-12-17 00:08 | EDPHYS ---
Physician Documentation [facility] Name: Suyapa Garcia Age: 40 yrs Sex: Male : 1980 Arrival Date: 12/16/2020 Time: 17:53 Bed 26 Private MD: ED Physician Daniel Vuong HPI: 12/16 21:35 This 40 yrs old Male presents to ER via Ambulatory with complaints of Left cp Side Pain. 21:35 The patient complains of pain in the left flank. cp 21:35 The pain radiates to the left upper leg. Onset: The symptoms/episode began/occurred 2 cp day(s) ago. Associated signs and symptoms: Pertinent negatives: diarrhea, fever, hematuria, low back pain, numbness and/or tingling, weakness of legs. Severity of pain: in the emergency department the pain is unchanged is actually worse walking. Historical: - Allergies: 18:37 No Known Allergies; ll1 - PMHx: 18:37 TIA; Hypertension; CVA; ll1 - PSHx: 18:37 None; ll1 - Immunization history:: Client reports having NOT received the Covid vaccine. Flu vaccine is not up to date. - Social history:: Smoking status: Patient denies any tobacco usage or history of. ROS: 21:40 Back: Positive for flank pain, on the left, Negative for low back pain. cp 21:40 Eyes: Negative for injury, pain, redness, and discharge. cp 21:40 Constitutional: Negative for body aches, chills, fever. 21:40 ENT: Negative for ear pain, sore throat, difficulty swallowing, difficulty handling secretions. 21:40 Cardiovascular: Negative for chest pain, palpitations. 21:40 Respiratory: Negative for cough, shortness of breath, wheezing. 21:40 Abdomen/GI: Positive for abdominal pain, Negative for nausea, vomiting, and diarrhea, constipation. 21:40 : Negative for urinary symptoms, testicular pain 21:40 Skin: Negative for rash. 21:40 Neuro: Negative for altered mental status, dizziness, numbness, weakness. 21:40 All other systems are negative. Exam: 21:45 Constitutional: The patient appears in no acute distress, alert, awake, non-toxic, well cp developed, well nourished. 21:45 Head/Face: Normocephalic, atraumatic. cp 21:45 Eyes: Periorbital structures: appear normal, Conjunctiva: normal, no exudate, no injection, Sclera: no appreciated abnormality, Lids and lashes: appear normal, bilaterally. 21:45 ENT: External ear(s): are unremarkable, Nose: is normal, Mouth: Lips: moist, Oral mucosa: moist, Posterior pharynx: Airway: no evidence of obstruction, patent. 21:45 Chest/axilla: Inspection: normal, Palpation: is normal, no crepitus, no tenderness. 21:45 Cardiovascular: Rate: normal. 21:45 Respiratory: the patient does not display signs of respiratory distress, Respirations: normal, no use of accessory muscles, labored breathing, is not present. 21:45 Abdomen/GI: Inspection: abdomen appears normal, Bowel sounds: active, all quadrants, Palpation: soft, in all quadrants, moderate abdominal tenderness, in the anterior aspect of left lateral abdomen, posterior aspect of left lateral abdomen, left upper quadrant and left lower quadrant, rebound tenderness, is not appreciated. 21:45 Back: pain, is absent, vertebral tenderness, is not appreciated. 21:45 Skin: no rash present. 21:45 Neuro: Orientation: to person, place \T\ time. Mentation: is normal, Motor: moves all fours, strength is normal, Gait: is steady, at a normal pace, without difficulty. Vital Signs: 18:35 BP 138 / 93; Pulse 76; Resp 17; Temp 98.2; Pulse Ox 100% ; Weight 81.65 kg; Height 5 ll1 ft. 4 in. (162.56 cm); Pain 7/10; 18:35 Body Mass Index 30.90 (81.65 kg, 162.56 cm) ll1 MDM: 21:22 Patient medically screened. cp 22:00 Differential diagnosis: nephrolithiasis, pyelonephritis, UTI, testicular torsion, cp diverticulitis, pancreatitis. 12/17 00:05 Data reviewed: vital signs, nurses notes, lab test result(s), radiologic studies, CT cp scan. 00:05 Counseling: I had a detailed discussion with the patient and/or guardian regarding: the cp historical points, exam findings, and any diagnostic results supporting the discharge/admit diagnosis, lab results, radiology results, to return to the emergency department if symptoms worsen or persist or if there are any questions or concerns that arise at home. Response to treatment: the patient's symptoms have mildly improved after treatment, and as a result, I will discharge patient. 00:10 ED course: Review of [place] prescription monitor program website does not show any cp results. 12/16 21:30 Order name: Basic Metabolic Panel; Complete Time: 23:19 cp 12/16 23:19 Interpretation: Normal except: K 3.4; CL 111; GFR 80. cp 12/16 21:30 Order name: CBC with Diff; Complete Time: 23:19 cp 12/16 21:30 Order name: Hepatic Function; Complete Time: 23:19 cp 12/16 21:30 Order name: Lipase; Complete Time: 23:19 cp 12/16 21:30 Order name: Urine Microscopic Only; Complete Time: 23:19 cp 12/16 23:19 Interpretation: Normal except: UWBC 5-10; UBACT LOADED. cp 12/16 22:46 Order name: Urine Culture EDDC 12/16 21:30 Order name: IV Saline Lock; Complete Time: 23:17 cp 12/16 21:30 Order name: Labs collected and sent; Complete Time: 23:17 cp 12/16 22:35 Order name: CT Stone Protocol cp 12/16 21:30 Order name: Urine Dipstick-Ancillary (obtain specimen); Complete Time: 00:30 cp Administered Medications: 12/16 23:49 Drug: TORadol - (ketorolac) 15 mg Route: IVP; Site: right antecubital; iw 23:49 Drug: Rocephin (cefTRIAXone) 1 grams Route: IV; Rate: calculated rate; Site: right iw antecubital; 12/17 00:27 Drug: Potassium Effervescent Tablet 50 mEq Route: PO; iw 00:28 Drug: morphine 4 mg Route: IVP; Site: right antecubital; iw Disposition: 07:45 Co-signature as Attending Physician, Daniel Vuong MD. [email or web address] Disposition: 12/17/20 00:07 Discharged to Home. Impression: Urinary tract infection, site not specified. - Condition is Stable. - Discharge Instructions: Urinary Tract Infection, Adult. - Prescriptions for Cipro 500 mg Oral Tablet - take 1 tablet by ORAL route every 12 hours for 10 days; 20 tablet. Tramadol 50 mg Oral Tablet - take 1 tablet by ORAL route every 8 hours as needed; 12 tablet. - Medication Reconciliation Form, Thank You Letter, Antibiotic Education, Prescription Opioid Use, Work release form form. - Follow up: Private Physician; When: 2 - 3 days; Reason: Recheck today's complaints. - Problem is new. - Symptoms have improved. Signatures: Dispatcher [employer] EDEmilee Dean RN RN iw Orestes Cornelius PA PA cp Lewis, Lynsay, RN RN ll1 Daniel Vuong MD MD [email or web address] Corrections: (The following items were deleted from the chart) 00:58 00:07 12/17/2020 00:07 Discharged to Home. Impression: Urinary tract infection, site iw not specified. Condition is Stable. Forms are Medication Reconciliation Form, Thank You Letter, Antibiotic Education, Prescription Opioid Use. Follow up: Private Physician; When: 2 - 3 days; Reason: Recheck today's complaints. Problem is new. Symptoms have improved. cp
--- NOTE | 2020-12-17 00:08 | ER ---
Nurse's Notes [facility] Name: Suyapa Garcia Age: 40 yrs Sex: Male : 1980 Arrival Date: 12/16/2020 Time: 17:53 Bed 26 Private MD: Diagnosis: Urinary tract infection, site not specified Presentation: 12/16 18:35 Chief complaint: Patient states: L flank pain that radiates into L upper leg for 2 ll1 days. No fever or dysuria. No N/V/D. Normal appetite. Pain increases with certain movements/steps L leg. No trauma or falls. Does heavy lifting at work. Coronavirus screen: Client denies travel out of the [place] in the last 14 days. At this time, the client does not indicate any symptoms associated with coronavirus-19. Ebola Screen: Patient denies travel to an Ebola-affected area in the 21 days before illness onset. Initial Sepsis Screen: Does the patient meet any 2 criteria? No. Patient's initial sepsis screen is negative. Does the patient have a suspected source of infection? No. Patient's initial sepsis screen is negative. Risk Assessment: Do you want to hurt yourself or someone else? Patient reports no desire to harm self or others. Onset of symptoms was December 15, 2020. 18:35 Method Of Arrival: Ambulatory ll1 18:35 Acuity: MAYRA 3 ll1 Historical: - Allergies: 18:37 No Known Allergies; ll1 - PMHx: 18:37 TIA; Hypertension; CVA; ll1 - PSHx: 18:37 None; ll1 - Immunization history:: Client reports having NOT received the Covid vaccine. Flu vaccine is not up to date. - Social history:: Smoking status: Patient denies any tobacco usage or history of. Vital Signs: 18:35 BP 138 / 93; Pulse 76; Resp 17; Temp 98.2; Pulse Ox 100% ; Weight 81.65 kg; Height 5 ll1 ft. 4 in. (162.56 cm); Pain 7/10; 18:35 Body Mass Index 30.90 (81.65 kg, 162.56 cm) ll1 ED Course: 17:53 Patient arrived in ED. bp1 18:37 Triage completed. ll1 18:37 Arm band placed on. ll1 21:08 Cheko, Emilee, RN is Primary Nurse. iw 21:08 Orestes Cornelius PA is PHCP. cp 21:08 Daniel Vuong MD is Attending Physician. cp 22:51 CT Stone Protocol In Process Unspecified. EDMS Administered Medications: 23:49 Drug: TORadol - (ketorolac) 15 mg Route: IVP; Site: right antecubital; iw 23:49 Drug: Rocephin (cefTRIAXone) 1 grams Route: IV; Rate: calculated rate; Site: right iw antecubital; 12/17 00:27 Drug: Potassium Effervescent Tablet 50 mEq Route: PO; iw 00:28 Drug: morphine 4 mg Route: IVP; Site: right antecubital; iw Outcome: 00:07 Discharge ordered by . cp 00:58 Patient left the ED. iw Signatures: Dispatcher [employer] EDMS Emilee Still RN RN iw Orestes Cornelius PA PA Cory Storey RN RN ll1 [facility] Corrections: (The following items were deleted from the chart) 12/16 18:38 18:35 Chief complaint: Patient states: L flank pain that radiates into L upper leg for ll1 2 days. No fever or dysuria. No N/V/D. Normal appetite. ll1
[2020-12-17] MEDS ORDERED: POTASSIUM 25 MEQ EFFERV TAB ONE (00:36)
[2020-12-17] MEDS ORDERED: MORPHINE 4 MG/ML SYR ONE (00:36)
[2020-12-17] MEDS ORDERED: ONDANSETRON 4 MG/2 ML VIAL ONE (00:37)
[2020-12-17 01:02] VITALS: BP 138/93; TEMP 98.2; O2SAT 100
--- NOTE | 2020-12-17 21:22 | RAD REPORT ---
EXAM DESCRIPTION: CT - Stone Protocol - 12/17/2020 6:32 am CLINICAL HISTORY: 40 years, Male, left flank pain COMPARISON: 10/01/2018 TECHNIQUE: Multiple transaxial tomograms of the abdomen and pelvis were performed from the lung base s to the symphysis pubis 3 mm slice thickness at 3 mm interval reconstruction, without administration of IV and oral contrast. Multiplanar reformats in the sagittal and coronal plane were generated and reviewed. This exam was performed according to our departmental dose-optimization protocol, which includes auto mated exposure control, adjustment of the mA and/or kV according to patient size and/or use of iterat lori reconstruction technique. FINDINGS: The lack of IV and oral contrast limits evaluation of solid organs, subtle lesions cannot be excluded. The lung bases demonstrate to be clear. Grossly the unopacified liver demonstrate slight decreased attenuation suggesting mild fatty filtrati on. Otherwise the liver, gallbladder, pancreas, spleen and adrenal glands demonstrate to be within no rmal limits, no significant focal lesions were identified. The kidneys demonstrate grossly unremarkable. There is no evidence for nephrolithiasis and/or hydro nephrosis. No focal masses were demonstrated. The ureters displays normal appearance with normal caliber, no hydroureter was seen. Grossly the unopacified stomach, small bowel and large bowel demonstrate to be within normal limits. There is no evidence for bowel dilatation/or free air. The appendix is unremarkable. The urinary bladder demonstrate to be within normal limits. The prostate gland demonstrate to be unre markable. The aorta demonstrate to be within normal limits. There is no retroperitoneal lymphadenop athy. There is no evidence for ascites. The rest of the soft tissue demonstrate to be grossly unrem arkable. IMPRESSION: No evidence for nephrolithiasis and/or hydronephrosis. Questionable mild fatty filtration of the liver. Otherwise unremarkable CT scan of the abdomen and pelvis without contrast. Electronically signed by: Pb Hernadez MD 12/16/2020 11:18 PM CDT Due to temporary technical issues with the PACS/Fluency reporting system, reports are being signed by the in house radiologists without review as a courtesy to insure prompt reporting. The interpreting radiologist is fully responsible for the content of the report.
== END 2020-12-17 00:58 | disposition home or self-care (01) ==
LOC: ER 17:50
DX: N39.0 Urinary tract infection, site not specified (principal); Z86.73 Personal history of transient ischemic attack (TIA), and cerebral infarction without residual deficits; I10 Essential (primary) hypertension
CPT/HCPCS: 87088; 85025; 87086; 80048; 36415; 80076; 81015; 83690; 76377; 74176; 96375; 96374; 99283; J0696; J7030; J2405

== ENCOUNTER 2023-10-28 20:36 | Emergency (ER) | payer OTHER, SELFPAY ==
[2023-10-28] MEDS ORDERED: IBUPROFEN 400 MG TAB ONE (21:12)
--- NOTE | 2023-10-28 21:38 | RAD REPORT ---
EXAM DESCRIPTION: RAD - Hand Right 3 View - 10/28/2023 9:32 pm CLINICAL HISTORY: PAIN COMPARISON: <Comparisons> FINDINGS: No fracture or dislocation. No aggressive marrow lesion.
--- NOTE | 2023-10-28 22:39 | ER ---
Nurse's Notes [facility] Name: Suyapa Garcia Age: 42 yrs Sex: Male : 1980 Arrival Date: 10/28/2023 Time: 20:36 Bed 12 Private MD: Diagnosis: Pain in right wrist;Pain in right hand Presentation: 10/27 21:02 Chief complaint: Patient states: "My right hand has been really hurting me for a few as6 days" pt reports no injury. Coronavirus screen: At this time, the client does not indicate any symptoms associated with coronavirus-19. Ebola Screen: No symptoms or risks identified at this time. Initial Sepsis Screen: Does the patient meet any 2 criteria? No. Patient's initial sepsis screen is negative. Does the patient have a suspected source of infection? No. Patient's initial sepsis screen is negative. Risk Assessment: Do you want to hurt yourself or someone else? Patient reports no desire to harm self or others. Onset of symptoms was October 25, 2023. 21:02 Method Of Arrival: Ambulatory as6 21:02 Acuity: MAYRA 4 as6 Triage Assessment: 23:21 General: Appears in no apparent distress. comfortable, Behavior is calm, cooperative. cm10 Pain: Complains of pain in right hand. Neuro: No deficits noted. Level of Consciousness is awake, alert, obeys commands, Oriented to person, place, time, situation. Cardiovascular: No deficits noted. Capillary refill < 3 seconds Patient's skin is warm and dry. Respiratory: No deficits noted. Airway is patent Respiratory effort is even, unlabored, Respiratory pattern is regular, symmetrical. Musculoskeletal: Range of motion: intact in all extremities. Historical: - Allergies: 21:03 No Known Allergies; as6 - PMHx: 21:03 CVA; Hypertension; TIA; as6 - PSHx: 21:03 None; as6 - Immunization history:: Adult Immunizations up to date. - Infectious Disease History:: Denies. - Social history:: Smoking status: Patient denies any tobacco usage or history of. Screenin:[address] [facility] ED Fall Risk Assessment (Adult) History of falling in the last 3 months, mb9 including since admission No falls in past 3 months (0 pts) Confusion or Disorientation No (0 pts) Intoxicated or Sedated No (0 pts) Impaired Gait No (0 pts) Mobility Assist Device Used No (0 pt) Altered Elimination No (0 pt) Score/Fall Risk Level 0 - 2 = Low Risk Oriented to surroundings, Maintained a safe environment, Educated pt \\T\\ family on fall prevention, incl call for assistance when getting out of bed, Assessed \\T\\ reinforced patient's understanding of fall precautions. Abuse screen: Denies threats or abuse. Nutritional screening: No deficits noted. Tuberculosis screening: No symptoms or risk factors identified. Assessment: 21:14 General: Appears in no apparent distress. Behavior is calm, cooperative. Pain: mb9 Complains of pain in right hand Pain does not radiate. Pain currently is 8 out of 10 on a pain scale. Quality of pain is described as throbbing. Neuro: [place] Agitation-Sedation Scale (RASS): 0 - Alert and Calm Level of Consciousness is awake, alert, obeys commands, Oriented to person, place, time, situation, Appropriate for age. Cardiovascular: Patient's skin is warm and dry. Respiratory: Airway is patent Respiratory effort is even, unlabored, Respiratory pattern is regular, symmetrical. GI: No signs and/or symptoms were reported involving the gastrointestinal system. : No signs and/or symptoms were reported regarding the genitourinary system. EENT: No signs and/or symptoms were reported regarding the EENT system. Derm: Skin is pink, warm \\T\\ dry. Musculoskeletal: Range of motion: intact in all extremities. Vital Signs: 21:02 BP 118 / 88; Pulse 82; Resp 15 S; Temp 98; Pulse Ox 98% on R/A; Weight 90.72 kg (R); as6 Height 5 ft. 4 in. (R); Pain 9/10; 21:02 Body Mass Index 34.33 (90.72 kg, 162.56 cm) as6 21:02 Pain Scale: Adult as6 ED Course: 20:42 Patient arrived in ED. gm2 20:46 Orestes Cornleius PA is PHCP. cp 20:46 Arnaldo Frank MD is Attending Physician. cp 21:03 Triage completed. as6 21:04 Arm band placed on. as6 21:10 Heidi Menard RN is Primary Nurse. mb9 21:13 Placed in gown. Bed in low position. Call light in reach. Side rails up X 1. Provided mb9 Education on: press call light if needing anything. Client placed on continuous cardiac and pulse oximetry monitoring. NIBP monitoring applied. 21:34 XRAY Hand RIGHT 3 View In Process Unspecified. EDMS 21:48 No provider procedures requiring assistance completed. Patient did not have IV access mb9 during this emergency room visit. 23:21 Velcro wrist splint applied to right wrist. cm10 Administered Medications: 21:13 Drug: Ibuprofen PO 800 mg PO once Route: PO; mb9 21:38 Follow up: Response: No adverse reaction mb9 Medication: 21:14 VIS not applicable for this client. mb9 Outcome: 22:38 Discharge ordered by MD. cp 23:21 Discharged to home ambulatory, with family, cm10 23:21 Condition: good 23:21 Discharge instructions given to patient, Instructed on discharge instructions, follow up and referral plans. medication usage, Demonstrated understanding of instructions, follow-up care, medications, splint care, Prescriptions given X 1, 23:22 Patient left the ED. cm10 Signatures: Dispatcher [employer] EDMS Orestes Cornelius PA PA cp Onur Jang RN RN as6 Heidi Menard RN RN mb9 Kimberley Juarez RN RN cm10 Luzmaria Hoyt 2
--- NOTE | 2023-10-28 22:39 | EDPHYS ---
Physician Documentation [facility] Name: Suyapa Garcia Age: 42 yrs Sex: Male : 1980 Arrival Date: 10/28/2023 Time: 20:36 Bed 12 Private MD: ED Physician Arnaldo Frank HPI: 10/27 21:15 This 42 yrs old Male presents to ER via Ambulatory with complaints of Arm Pain.cp 21:15 The patient or guardian complains of pain, that is acute. The complaints affect the cp dorsal side of right hand and right wrist. Context: resulted from unknown cause. Onset: The symptoms/episode began/occurred for past several days. Treatment prior to arrival includes: no previous treatment. Modifying factors: the symptoms are aggravated by movement, making fist. Associated signs and symptoms: Pertinent negatives: decreased range of motion, deformity, numbness, warmth, weakness. Historical: - Allergies: 21:03 No Known Allergies; as6 - PMHx: 21:03 CVA; Hypertension; TIA; as6 - PSHx: 21:03 None; as6 - Immunization history:: Adult Immunizations up to date. - Infectious Disease History:: Denies. - Social history:: Smoking status: Patient denies any tobacco usage or history of. ROS: 21:20 MS/extremity: Positive for pain, of the dorsal side of right hand and right wrist, cp Negative for injury or acute deformity, decreased range of motion, 21:20 Constitutional: Negative for fever, cp 21:20 All other systems are negative, Exam: 21:25 Constitutional: The patient appears in no acute distress, alert, awake, comfortable, cp well developed, well nourished, 21:25 Head/Face: Normocephalic, atraumatic. cp 21:25 Musculoskeletal/extremity: Extremities: grossly normal except: noted in the right hand: tenderness along dorsum of right hand and right wrist, no AROM restriction, no gross swelling noted, no erythema, skin warm and intact, ROM: full active range of motion, in the right hand, Perfusion: the extremity is normally perfused throughout, the right hand Sensation intact. Vital Signs: 21:02 BP 118 / 88; Pulse 82; Resp 15 S; Temp 98; Pulse Ox 98% on R/A; Weight 90.72 kg (R); as6 Height 5 ft. 4 in. (R); Pain 9/10; 21:02 Body Mass Index 34.33 (90.72 kg, 162.56 cm) as6 21:02 Pain Scale: Adult as6 MDM: 21:05 Patient medically screened. cp 21:15 Differential diagnosis: closed fracture, tendonitis, cellulitis. cp 22:38 Data reviewed: vital signs, nurses notes, radiologic studies, plain films. cp 22:38 I considered the following discharge prescriptions or medication management in the cp emergency department Medications were administered in the Emergency Department. See MAR. Independent interpretation of the following test(s) in the Emergency Department X-Ray: My interpretation is images of right hand negative for fracture. Counseling: I had a detailed discussion with the patient and/or guardian regarding the historical points, exam findings, and any diagnostic results supporting the discharge/admit diagnosis, radiology results, the need for outpatient follow up, a family practitioner, to return to the emergency department if symptoms worsen or persist or if there are any questions or concerns that arise at home. Response to treatment: the patient's symptoms have mildly improved after treatment. 10/27 21:08 Order name: XRAY Hand RIGHT 3 View cp 10/27 21:14 Order name: XRAY Hand RIGHT 3 View cp 10/27 22:37 Order name: Wrist Splint; Complete Time: 23:16 cp Administered Medications: 21:13 Drug: Ibuprofen PO 800 mg PO once Route: PO; mb9 21:38 Follow up: Response: No adverse reaction mb9 Disposition: 10/28 21:22 Co-signature as Attending Physician, Arnaldo Frank MD I agree with the assessment sp4 and plan of care. I reviewed the patient's care provided by the Advanced Practice Provider and agree with the diagnosis and treatment plan. Disposition Summary: 10/28/23 22:38 Discharge Ordered Notes: Location: Home cp Problem: new cp Symptoms: have improved cp Condition: Stable cp Diagnosis - Pain in right wrist cp - Pain in right hand cp Followup: cp - With: Private Physician - When: 1 week - Reason: pain continues Discharge Instructions: - Discharge Summary Sheet cp - Wrist Pain, Adult cp - Hand Pain cp Forms: - Medication Reconciliation Form cp - Thank You Letter cp - Antibiotic Education cp - Prescription Opioid Use cp - Patient Portal Instructions cp - Leadership Thank You Letter cp Prescriptions: - Ibuprofen 800 mg Oral Tablet - take 1 tablet ORAL route every 8 hours As needed take with food; 30 tablet; cp Refills: 0, Product Selection Permitted Signatures: Dispatcher [employer] EDMS Orestes Cornelius PA PA cp Onur Jang RN RN as6 Sailaja, Heidi Martinez RN RN mb9 Arnaldo Frank MD MD sp4 Corrections: (The following items were deleted from the chart) 10/27 21:08 21:08 Hand Right 3 View+[email or web address] ordered. EDMS EDMS 10/28 17:28 17:27 MS/extremity: Positive for pain, of the dorsal side of right hand and right cp wrist, cp
[2023-10-29 05:39] VITALS: BP 118/88; TEMP 98; O2SAT 98
== END 2023-10-28 23:22 | disposition home or self-care (01) ==
LOC: ER 20:36
DX: M25.531 Pain in right wrist (principal); M79.641 Pain in right hand
CPT/HCPCS: 99284